=== PATIENT | female | born 1945 | race Caucasian/White ===

== ENCOUNTER 2019-02-24 09:44 | Outpatient (RCR) | payer OTHER, MEDICARE, MEDICAID, SELFPAY | END 2019-03-14 23:59 | disposition home or self-care (01) | LOC: SPT 09:44 | PROVIDERS: Family Provider Family Medicine; PCP Family Medicine; Referring Provider Orthopaedic Surgery; Visit Provider Family Medicine | DX: Z47.89 Encounter for other orthopedic aftercare (principal); M54.9 Dorsalgia, unspecified | CPT/HCPCS: 97110; 97161 ==

== ENCOUNTER 2019-03-15 06:00 | Outpatient (RCR) | payer OTHER, MEDICARE, MEDICAID, SELFPAY | END 2019-04-12 23:59 | disposition home or self-care (01) | LOC: SPT 06:00 | PROVIDERS: Family Provider Family Medicine; PCP Family Medicine; Referring Provider Orthopaedic Surgery; Visit Provider Family Medicine | DX: Z47.89 Encounter for other orthopedic aftercare (principal); M25.512 Pain in left shoulder | CPT/HCPCS: 97110 ==

== ENCOUNTER 2019-04-08 14:54 | Outpatient (CLI) | payer OTHER, MEDICARE, MEDICAID, SELFPAY ==
--- NOTE | 2019-04-08 15:15 | MR_ITS ---
WS: [id number] MRI CERVICAL SPINE NONCONTRAST TECHNIQUE: Sagittal T1, T2 and STIR imaging. Axial T2, gradient, and fiesta imaging. CLINICAL INFORMATION: neck pain COMPARISON: MRI FINDINGS: Straightening of the normal cervical lordosis. No high-grade central canal narrowing. Tiny central pr otrusion C4-C5 C5-C6 and C6-C7. C2-C3: Normal. C3-C4: Tiny central disc osteophyte protrusion. Mild facet arthropathy. Mild left and no significant right foraminal narrowing. C4-C5: Left pericentral disc osteophyte protrusion with slight contact and indentation of the cervica l cord. Mild central canal stenosis. Mild bilateral foraminal narrowing. Moderate facet arthropathy. C5-C6: Disc osteophyte complex with endplate ridging. Mild left and no significant right foraminal na rrowing. Mild/moderate facet arthropathy. C6-C7: Disc osteophyte complex with mild central canal stenosis. Mild left and no significant right f oraminal narrowing. C7-T1: Mild bilateral bony foraminal narrowing. Spinal canal is patent. T1-T2: Normal. Overall degenerative changes are similar in appearance 2011 with slight progression. MR/MR cervical spin wo con* [id number] IMPRESSION: 1. Straightening of the normal cervical lordosis. No high-grade central canal narrowing. 2. Shallow central disc osteophyte protrusions more prominent at C4-C5 C5-C6 a nd C6-C7 3. Left pericentral disc osteophyte protrusion C4-C5 with slight contact and i ndentation left ventral cervical cord. Mild central canal stenosis. This is sim ilar to 2012. 4. Disc osteophyte complex C5-C6 and C6-C7 with mild left foraminal narrowing at these levels. 5. Mild left C3-C4 bony foraminal narrowing with moderate left facet arthropat hy.
== END 2019-04-08 14:55 | disposition home or self-care (01) ==
LOC: RADSHAW 14:59
PROVIDERS: Family Provider Family Medicine; PCP Family Medicine; Visit Provider Orthopaedic Surgery
DX: M54.12 Radiculopathy, cervical region (principal); M50.221 Other cervical disc displacement at C4-C5 level; M25.78 Osteophyte, vertebrae; M48.02 Spinal stenosis, cervical region
CPT/HCPCS: 72141

== ENCOUNTER → 2019-05-16 10:19 | Outpatient (BNVA) | payer OTHER, MEDICARE, MEDICAID, SELFPAY | PROVIDERS: Family Provider Family Medicine; PCP Family Medicine; Referring Provider Licensed Practical Nurse; Visit Provider Anesthesiology Pain Medicine | DX: M54.2 Cervicalgia (principal); M54.9 Dorsalgia, unspecified; Z79.891 Long term (current) use of opiate analgesic | CPT/HCPCS: 99204 ==

== ENCOUNTER 2019-05-22 09:36 | Outpatient (CLI) | payer OTHER, MEDICARE, MEDICAID, SELFPAY ==
--- NOTE | 2019-05-22 10:00 | XR_ITS ---
WS: [id number] LATERAL CERVICAL SPINE: 3 view. Lateral radiographs are performed in upright neutral, flexion and extension to the patient's toleranc e. HISTORY: Neck pain COMPARISON: None available. Normal cervical alignment. Mild disc space narrowing and desiccation at C5-6 and C6-7 with small oste ophytes. With flexion and extension no instability. Craniocervical junction is negative. No soft tiss ue abnormalities. XR/XR cervical spine fl/ex [id number] IMPRESSION: Normal cervical alignment with no instability. Mild spondylosis at C5-6 and C6-7.
== END 2019-05-22 09:37 | disposition home or self-care (01) ==
PROVIDERS: Family Provider Family Medicine; PCP Family Medicine; Visit Provider Licensed Practical Nurse
DX: M54.2 Cervicalgia (principal); M47.812 Spondylosis without myelopathy or radiculopathy, cervical region; G56.02 Carpal tunnel syndrome, left upper limb; Z87.891 Personal history of nicotine dependence
CPT/HCPCS: 72040; 95886; 95908

== ENCOUNTER → 2019-07-08 13:07 | Outpatient (BNVA) | payer MEDICARE, MEDICAID, SELFPAY | PROVIDERS: Family Provider Family Medicine; PCP Family Medicine; Visit Provider Anesthesiology Pain Medicine | DX: M50.020 Cervical disc disorder with myelopathy, mid-cervical region, unspecified level (principal) | CPT/HCPCS: 62321; J1100; J2001 ==

== ENCOUNTER → 2019-07-30 12:55 | Outpatient (BNVA) | payer OTHER, MEDICARE, MEDICAID, SELFPAY | PROVIDERS: Family Provider Family Medicine; PCP Family Medicine; Visit Provider Anesthesiology Pain Medicine | DX: M50.10 Cervical disc disorder with radiculopathy, unspecified cervical region (principal); M54.9 Dorsalgia, unspecified | CPT/HCPCS: 99213 ==

== ENCOUNTER → 2019-10-30 10:51 | Outpatient (BNVA) | payer MEDICARE, MEDICAID, SELFPAY | PROVIDERS: Family Provider Family Medicine; PCP Family Medicine; Visit Provider Anesthesiology Pain Medicine | DX: M51.17 Intervertebral disc disorders with radiculopathy, lumbosacral region (principal); M51.9 Unspecified thoracic, thoracolumbar and lumbosacral intervertebral disc disorder; M54.9 Dorsalgia, unspecified; M50.10 Cervical disc disorder with radiculopathy, unspecified cervical region; Z79.891 Long term (current) use of opiate analgesic | CPT/HCPCS: 99214 ==

== ENCOUNTER 2019-12-01 07:08 | Outpatient (CLI) | payer MEDICARE, MEDICAID, SELFPAY ==
--- NOTE | 2019-12-01 07:15 | MR_ITS ---
WS: [id number] MRI LUMBAR SPINE NONCONTRAST TECHNIQUE: Sagittal T1, T2 and STIR imaging. Axial T1 and T2 imaging. CLINICAL INFORMATION: M54.16 Radiculopathy, lumbar region COMPARISON: MRI August 07, 2018 FINDINGS: Mild lumbar curve. No acute compression. Slight anterolisthesis L4 on L5. No acute compression fractu res. L1-L2: Mild annular bulging. Narrowing of the subarticular recess bilaterally. Encroachment on darryn sing L2 nerve roots. Mild facet arthropathy. Mild right greater than left foraminal narrowing. L2-L3: Mild annular bulging. Slight effacement of ventral thecal sac. Mild right and no significant l eft foraminal narrowing. Moderate facet arthropathy. L3-L4: Mild annular bulging with narrowing of the left subarticular recess. Mild left and no signific ant right foraminal narrowing. Moderate facet arthropathy. L4-L5: Slight anterolisthesis L4 on L5. Narrowing of the subarticular recess bilaterally. Encroachmen t traversing L5 nerve roots. Mild left and no significant right foraminal narrowing. Moderate facet a rthropathy. L5-S1: Broad-based central disc osteophyte complex contacts the far exiting right L5 nerve root later ally. Mild right foraminal narrowing. Left foramen is patent. Mild facet arthropathy. Tiny central pr otrusion slightly contacts the traversing right S1 nerve root. Visualized pelvic bony structures: Normal. Paravertebral soft tissues: Normal. MR/MR lumbar spine wo con* [id number] IMPRESSION: 1. Mild lumbar curve. No acute compression. No high-grade central canal stenos is. 2. Slight anterolisthesis L4 on L5 is unchanged. Narrowing of the right greate r than left L4-5 subarticular recess with slight encroachment traversing L5 ner ve roots. Mild to moderate left L4-5 foraminal narrowing. 3. Slight annular bulging L3-4 with narrowing of the left subarticular recess and encroachment traversing left L4 nerve root. Mild left foraminal narrowing a t this level. 4. Right eccentric disc osteophyte complex L5-S1 encroaches on the far exiting right L5 nerve root laterally. Tiny central protrusion at this level. 5. Annular bulging L1-2 with narrowing of the subarticular recess and contact of the traversing L2 nerve roots bilaterally. 6. No significant changes since
--- NOTE | 2019-12-01 08:00 | MR_ITS ---
WS: [id number] MRI THORACIC SPINE WITHOUT CONTRAST TECHNIQUE: Sagittal T1, T2 and STIR imaging. Axial T2 imaging. Noncontrast imaging obtained. CLINICAL INFORMATION: M51.9 Unspecified thoracic, thoracolumbar and lumbosacral... COMPARISON: None. FINDINGS: Mild thoracic kyphosis. Mild chronic anterior wedging in the mid thoracic spine with endplate Schmorl 's nodes. Cord signal is normal. Small disc protrusions in the mid thoracic spine more prominent at T 6-7 and T7-T8, T6-7: Tiny shallow central disc protrusion. Slight contact of the thoracic cord. Spinal canal and for amen are patent. Mild facet arthropathy. T7-T8: Small left pericentral protrusion with slight indentation on the thoracic cord. Spinal canal i s patent. Mild left foraminal narrowing. Mild facet arthropathy. Moderate facet arthropathy in the lower thoracic spine. Normal visualized thoracic aorta. MR/MR thoracic spin wo con* [id number] IMPRESSION: 1. Mild thoracic kyphosis. No acute compression. No high-grade central canal s tenosis. 2. Small central disc protrusions at T6-T7 and T7-T8 described above with sli ght contact of the thoracic cord. 3. Cord signal is normal. 4. Mild/moderate facet arthropathy lower thoracic spine. 5. Mild chronic anterior wedging with endplate Schmorl's nodes in the mid thor acic spine more prominent at T6-T10.
== END 2019-12-01 07:09 | disposition home or self-care (01) ==
LOC: RADSHAW 07:11
PROVIDERS: PCP Family Medicine; Visit Provider Anesthesiology Pain Medicine
DX: M51.9 Unspecified thoracic, thoracolumbar and lumbosacral intervertebral disc disorder (principal); M54.16 Radiculopathy, lumbar region; M25.78 Osteophyte, vertebrae; M51.26 Other intervertebral disc displacement, lumbar region; M48.061 Spinal stenosis, lumbar region without neurogenic claudication; M40.204 Unspecified kyphosis, thoracic region; M51.24 Other intervertebral disc displacement, thoracic region; M47.814 Spondylosis without myelopathy or radiculopathy, thoracic region; M48.54XA Collapsed vertebra, not elsewhere classified, thoracic region, initial encounter for fracture; X58.XXXA Exposure to other specified factors, initial encounter; M51.44 Schmorl's nodes, thoracic region
CPT/HCPCS: 72146; 72148

== ENCOUNTER → 2019-12-25 08:57 | Outpatient (BNVA) | payer MEDICARE, MEDICAID, SELFPAY | PROVIDERS: PCP Family Medicine; Visit Provider Anesthesiology Pain Medicine | DX: M54.42 Lumbago with sciatica, left side (principal); M54.41 Lumbago with sciatica, right side; M54.9 Dorsalgia, unspecified; M54.2 Cervicalgia; Z79.891 Long term (current) use of opiate analgesic | CPT/HCPCS: 99213; 99214 ==

== ENCOUNTER → 2019-12-31 14:30 | Outpatient (BNVA) | payer MEDICARE, MEDICAID, SELFPAY | PROVIDERS: PCP Family Medicine; Visit Provider Anesthesiology Pain Medicine | DX: M54.16 Radiculopathy, lumbar region (principal); M54.9 Dorsalgia, unspecified; Z79.891 Long term (current) use of opiate analgesic | CPT/HCPCS: 64483; 64484; J1100; J3490 ==

== ENCOUNTER → 2020-01-21 10:20 | Outpatient (BNVA) | payer MEDICARE, MEDICAID, SELFPAY | PROVIDERS: PCP Family Medicine; Visit Provider Anesthesiology Pain Medicine | DX: M54.42 Lumbago with sciatica, left side (principal); M54.41 Lumbago with sciatica, right side; M54.9 Dorsalgia, unspecified; M54.2 Cervicalgia; Z79.891 Long term (current) use of opiate analgesic | CPT/HCPCS: 99212 ==

== ENCOUNTER → 2020-07-29 09:50 | Outpatient (BNVA) | payer MEDICARE, MEDICAID, SELFPAY | PROVIDERS: PCP Family Medicine; Visit Provider Anesthesiology Pain Medicine | DX: M54.2 Cervicalgia (principal); M54.9 Dorsalgia, unspecified; R51.9 Headache, unspecified; M25.512 Pain in left shoulder; Z87.891 Personal history of nicotine dependence; Z79.891 Long term (current) use of opiate analgesic | CPT/HCPCS: 99214 ==

== ENCOUNTER → 2020-10-22 09:34 | Outpatient (BNVA) | payer MEDICARE, MEDICAID, SELFPAY | PROVIDERS: PCP Family Medicine; Visit Provider Anesthesiology Pain Medicine | DX: M54.2 Cervicalgia (principal); M25.512 Pain in left shoulder; M79.602 Pain in left arm; M19.09 Primary osteoarthritis, other specified site; M54.5 Low back pain; M25.78 Osteophyte, vertebrae; Z79.891 Long term (current) use of opiate analgesic | CPT/HCPCS: 99214 ==

== ENCOUNTER → 2020-11-02 14:03 | Outpatient (BNVA) | payer MEDICARE, MEDICAID, SELFPAY | PROVIDERS: PCP Family Medicine; Visit Provider Anesthesiology Pain Medicine | DX: M47.812 Spondylosis without myelopathy or radiculopathy, cervical region (principal); Z79.891 Long term (current) use of opiate analgesic | CPT/HCPCS: 64490; 64491; 64492; J3490 ==

== ENCOUNTER → 2020-11-16 09:48 | Outpatient (BNVA) | payer MEDICARE, MEDICAID, SELFPAY | PROVIDERS: PCP Family Medicine; Visit Provider Anesthesiology Pain Medicine | DX: M54.2 Cervicalgia (principal); M54.50 Low back pain, unspecified; Z79.891 Long term (current) use of opiate analgesic | CPT/HCPCS: 99214 ==

== ENCOUNTER → 2020-11-23 14:34 | Outpatient (BNVA) | payer MEDICARE, MEDICAID, SELFPAY | PROVIDERS: PCP Family Medicine; Visit Provider Anesthesiology Pain Medicine | DX: M47.812 Spondylosis without myelopathy or radiculopathy, cervical region (principal); Z79.891 Long term (current) use of opiate analgesic | CPT/HCPCS: 64633; 64634; J1030 ==

== ENCOUNTER → 2020-12-08 14:41 | Outpatient (BNVA) | payer MEDICARE, MEDICAID, SELFPAY | PROVIDERS: PCP Family Medicine; Visit Provider Anesthesiology Pain Medicine | DX: M47.812 Spondylosis without myelopathy or radiculopathy, cervical region (principal); Z79.891 Long term (current) use of opiate analgesic | CPT/HCPCS: 64633; 64634; J3490 ==

== ENCOUNTER → 2020-12-22 09:54 | Outpatient (BNVA) | payer MEDICARE, MEDICAID, SELFPAY | PROVIDERS: PCP Family Medicine; Visit Provider Anesthesiology Pain Medicine | DX: M48.061 Spinal stenosis, lumbar region without neurogenic claudication (principal); M47.812 Spondylosis without myelopathy or radiculopathy, cervical region; M25.78 Osteophyte, vertebrae; M25.512 Pain in left shoulder; M79.602 Pain in left arm | CPT/HCPCS: 99213 ==

== ENCOUNTER 2021-05-19 07:14 | Day surgery (SDC) | payer MEDICARE, MEDICAID, SELFPAY ==
[2021-05-18 13:19] VITALS: BMI 45.5
--- NOTE | 2021-05-19 07:36 | W.PM.OPSFHP ---
Same Day Surgery H&P Indication for Procedure/HPI DATE OF PROCEDURE: May 19, 2021 CHIEF COMPLAINT/INDICATIONFOR SURGICAL PROCEDURE: Right temporal headache PREOP DIAGNOSIS: Right temporal artery biopsy PLANNED PROCEDURE: Operation Date: 05/19/21 08:40 Proposed Procedures p Temporal Artery Biopsy right 92073/r51.9(Right) - Amos Abdi MD Medications/Allergies* Home Medications Medication Instructions Recorded Confirmed Type hydrocodone 5 mg-acetaminophen 325 1 tab PO BID PRN 02/18/19 05/18/21 History mg tablet ([place]) levothyroxine 125 mcg capsule 125 mcg PO DAILY 02/18/19 05/18/21 History metoprolol succinate 50 mg 50 mg PO BEDTIME 02/18/19 05/18/21 History tablet,extended release 24 hr pantoprazole 40 mg granules 40 mg PO DAILY 02/18/19 05/18/21 History delayed-release for susp in packet (Protonix) tizanidine 2 mg capsule 2 mg PO BID PRN 02/18/19 05/18/21 History cholecalciferol (vitamin D3) 25 25 mcg PO DAILY 05/15/19 05/18/21 History mcg (1,000 unit) capsule coenzyme Q10 75 mg capsule (Ultra 75 mg PO DAILY 05/15/19 05/18/21 History CoQ10) omega-3 fatty acids 500 mg capsule 500 mg PO DAILY 05/15/19 05/18/21 History Allergies/Adverse Reactions Allergy/AdvReac Type Severity Reaction Status Date / Time Iodinated Contrast Media Allergy Unknown anaphylaxis Verified 05/18/21 13:06 adhesive Allergy red skin Verified 05/18/21 13:06 oxaprozin [From Daypro] Allergy itching, Verified 05/18/21 13:06 rash shellfish derived Allergy swelling Verified 05/18/21 13:06 of throat and face Pertinent History/Comorbid Conditions* Medical History (Updated 05/10/21 @ 14:37 by Amos Abdi MD) Cervical disc disorder with myelopathy of mid-cervical region Cervical disc disorder with radiculopathy Stenosis of cervical spine with myelopathy Surgical History (Updated 05/10/21 @ 14:37 by Amos Abdi MD) History of appendectomy History of carpal tunnel release History of colonoscopy History of hysterectomy History of laparoscopic cholecystectomy History of removal of laparoscopic gastric banding device History of shoulder surgery Hx of cataract surgery Hx of laparoscopic adjustable gastric banding Family History (Updated 05/15/19 @ 12:28 by Fani Calhoun APRN) CAD (coronary artery disease) Mother Social History Smoking and tobacco status: former smoker Second hand smoke exposure: No Alcohol intake: never Household members: none Marital status: / Current occupational status: retired and disabled History of recent travel: No Pertinent Exam Findings alert, oriented x 3 and regular rate & rhythm Recommendations Surgery/Procedure today Coding Level of Care Code Acute Overhead Crane Inspector for Kody Arshad
--- NOTE | 2021-05-19 07:41 | ECG_ITS ---
[facility] Test Date: 2021-05-19 Pat Name: Jenn Diego Department: Room: Gender: Female Grade Checker: : 1945 Requested By: Gloria Knapp Order Number: [id number] Davidson MD: Marlon Gómez M.D. Measurements Intervals [place] Rate: 58 P: 1 CT: 195 QRS: -9 QRSD: 89 T: 0 QT: 406 QTc: 401 Interpretive Statements SINUS BRADYCARDIA LOW QRS VOLTAGE IN PRECORDIAL LEADS [QRS DEFLECTION < 1.0 mV IN CHEST LEADS] Possible INFERIOR MYOCARDIAL INFARCTION , PROBABLY OLD [40+ ms Q WAVE AND/OR ST/T ABNORMALITY IN II/aVF] Compared to ECG 11/19/2018 09:54:08 Sinus arrhythmia no longer present Myocardial infarct finding still present Electronically Signed On 05-19-2021 16:15:56 CDT by Marlon Gómez M.D. [id number]
[2021-05-19 07:46] VITALS: BP 185/102; PULSE 98; RESP 12; TEMP 36.6; O2SAT 98
--- NOTE | 2021-05-19 08:06 | P.ANESASSM_ITS ---
Pre-Anesthetic Assessment Height/Weight: Height 1.52 m Weight 105.687 kg Temp Pulse Resp BP Pulse Ox 97.8 F 98 12 185/102 98 05/19/21 07:46 05/19/21 07:46 05/19/21 07:46 05/19/21 07:46 05/19/21 07:46 Preop Diagnosis: Right temporal headache Operation Date: 05/19/21 08:40 Proposed Procedures p Temporal Artery Biopsy right 59172/r51.9(Right) - Amos Abdi MD Familial anesthetic complications: None Was Beta Osmin taken within 24 hours: Yes Was Clonidine taken within 24 hours: N/A Social No alcohol and No tobacco Exam alert, oriented x 3, clear to auscultation bilaterally and regular rate & rhythm Airway Submandibular: within normal limits Cervical ROM: Other (Limited extension ) Mallampati: Class II Dentition: partials Pulmonary None reported CV/HEM Atrial Fibrillation and Hypertension Hx of afib no resolved s/p cardioversion not on anticoagulation Hx of HTN GI Gastroesophageal Reflux Disease and None reported Metabolic Morbid Obesity and Thyroid Disease (Hypothyroid ) Musc/skel 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 Neuropsych Neuropathy (carpal tunnel ) Cervical stenosis Cervical rediculopathy Anesthetic Plan ASA status: 3 (75 year old morbidly obese female with hx of GERD, afib, HTN. ) Anesthesia: Anesthesia Evaluation, General and MAC Other: I discussed with the patient risks, goals, and benefits of MAC and general anesthesia. We discussed spectrum of MAC anesthesia including conversion to general as well as possibility of recall of intraoperative stimuli including discomfort/pain. Patient agrees to proceed with MAC. Risk of > 500 ml blood loss (7ml/kg in children): No Medications/Allergies Home Medications Medication Instructions Recorded Confirmed Last Taken Type hydrocodone 5 mg-acetaminophen 325 1 tab PO BID PRN 02/18/19 05/18/21 Unknown History mg tablet ([place]) levothyroxine 125 mcg capsule 125 mcg PO DAILY 02/18/19 05/19/21 05/19/21 History metoprolol succinate 50 mg 50 mg PO BEDTIME 02/18/19 05/19/21 05/18/21 History tablet,extended release 24 hr pantoprazole 40 mg granules 40 mg PO DAILY 02/18/19 05/19/21 05/18/21 History delayed-release for susp in packet (Protonix) tizanidine 2 mg capsule 2 mg PO BID PRN 02/18/19 05/19/21 05/18/21 History cholecalciferol (vitamin D3) 25 25 mcg PO DAILY 05/15/19 05/19/21 05/18/21 History mcg (1,000 unit) capsule coenzyme Q10 75 mg capsule (Ultra 75 mg PO DAILY 05/15/19 05/19/21 05/18/21 History CoQ10) omega-3 fatty acids 500 mg capsule 500 mg PO DAILY 05/15/19 05/19/21 05/18/21 History back brace #1 ea 12/08/20 05/10/21 Unknown Rx Allergies Allergy/AdvReac Type Severity Reaction Status Date / Time Iodinated Contrast Media Allergy Unknown anaphylaxis Verified 05/18/21 13:06 adhesive Allergy red skin Verified 05/18/21 13:06 oxaprozin [From Daypro] Allergy itching, Verified 05/18/21 13:06 rash shellfish derived Allergy swelling Verified 05/18/21 13:06 of throat and face [facility] Anesthesia Medical History Cervical disc disorder with myelopathy of mid-cervical region Cervical disc disorder with radiculopathy Stenosis of cervical spine with myelopathy Surgical History History of appendectomy History of carpal tunnel release History of colonoscopy History of hysterectomy History of laparoscopic cholecystectomy History of removal of laparoscopic gastric banding device History of shoulder surgery Hx of cataract surgery Hx of laparoscopic adjustable gastric banding Family History Mother CAD (coronary artery disease) Social History Smoking and tobacco status: former smoker Second hand smoke exposure: No Alcohol intake: never Household members: none Marital status: / Current occupational status: retired and disabled History of recent travel: No Data Anesthesia Cardiac Studies: No Data to Display
[2021-05-19] MEDS: sodium chloride 0.9% 1,000 ML 30 ML IV (08:10)
[2021-05-19] MEDS: lidocaine 2% INJ 20 mL INJECTION (09:39)
[2021-05-19 10:01] VITALS: BP 135/69; PULSE 56; RESP 16; TEMP 36.4; O2SAT 99
[2021-05-19 10:08] VITALS: BP 134/65; PULSE 57; RESP 14; O2SAT 100
--- NOTE | 2021-05-19 10:08 | PM.OP ---
Operative Report Date of procedure: May 19, 2021 Pre-op diagnosis: Right temporal headache Post-op diagnosis: same Procedure done: Right superficial temporal artery biopsy Specimens removed/disposition: Right superficial temporal artery Surgeon: Amos Abdi Anesthesia: MAC Condition: stable Disposition: PACU Procedure: The patient was taken to the operating room, placed under MAC and the right temporal artery was marked using a Doppler and the hair overlying the markings were clipped. 5 mL of 1% lidocaine with 0.5% Marcaine was infiltrated around this area. Using a 15 blade the skin and subcutaneous tissue was divided until the temporoparietal fascia was identified. The temporoparietal fascia was opened using Iris scissors and about a 3 cm segment of temporal artery was skeletonized. Small vascular clips were applied proximally and distally and the artery was divided and sent to pathology. Hemostasis was ensured, subcutis tissue approximated using running 3-0 Vicryl suture and skin was closed using running subcuticular 4-0 Monocryl suture and Dermabond. The patient was transferred to recovery room in stable condition.
[2021-05-19 10:10] VITALS: BP 131/75; PULSE 58; RESP 18; TEMP 36.6; O2SAT 96
[2021-05-19 10:25] VITALS: BP 131/82; PULSE 62; RESP 16; TEMP 36.6; O2SAT 97
[2021-05-19 11:11] VITALS: BP 110/65; PULSE 63; RESP 16; TEMP 36.7; O2SAT 97
--- NOTE | 2021-05-19 13:50 | ANE.PACU2 ---
Inpatient post-anesthesia follow up: Airway intact: Yes Vital signs: Temperature 98.0 F Pulse Rate 63 Respiratory Rate 16 Blood Pressure 110/65 Pulse Oximetry 97 Oxygen Delivery Me thod Room Air Oxygen Flow Rate Fraction of Inspir ed Oxygen Hydration adequate: Yes Nausea and vomiting: No Pain level: 1 Mental status: Baseline
== END 2021-05-19 11:15 | disposition home or self-care (01) ==
PROVIDERS: PCP Family Medicine; Visit Provider Surgery
PROC: (CPT 37609; principal; 2021-05-19 08:40)
DX: R51.9 Headache, unspecified (principal); M31.6 Other giant cell arteritis; I48.91 Unspecified atrial fibrillation; I10 Essential (primary) hypertension; K21.9 Gastro-esophageal reflux disease without esophagitis; E66.01 Morbid (severe) obesity due to excess calories; Z68.42 Body mass index [BMI] 45.0-49.9, adult; Z87.891 Personal history of nicotine dependence
CPT/HCPCS: 37609; 88305; 93005; J0690; J2704; J3010; J3490; J7030

== ENCOUNTER → 2021-05-31 08:04 | Outpatient (BNVA) | payer MEDICARE, MEDICAID, SELFPAY | PROVIDERS: PCP Family Medicine; Visit Provider Surgery | DX: Z98.890 Other specified postprocedural states (principal) | CPT/HCPCS: 99999 ==

== ENCOUNTER 2021-09-09 09:15 | Outpatient (CLI) | payer MEDICARE, MEDICAID, SELFPAY ==
--- NOTE | 2021-09-09 | ECG_ITS ---
[facility] Test Date: 2021-09-09 Pat Name: Jenn Diego Department: Room: Gender: Female Transmission System Operator: : 1945 Requested By: Nafisa Foster Order Number: [id number] Davidson MD: Philip Dotson M.D. Interpretive Statements NAME OF STUDY: LEXISCAN SESTAMIBI STRESS TEST INDICATION: Chest Pain, PROCEDURE: At the baseline, the EKG revealed normal sinus rhythm poor R wave progression. Possible old septal ID. The baseline blood pressure was 134/66 mm Hg with a heart rate of 62 beats/min. Lexiscan was infused over a period of 20 seconds. A total of 0.4 milligrams of Lexiscan was infused. The stress phase was continued for a total of 5 minutes. Heart rate at the end of the stress phase was 73 with a blood pressure 154/74. The EKG at the peak infusion revealed no significant changes. Sestamibi was injected 20 seconds after the Lexiscan infusion. Blood pressure at the end of the recovery phase was 152/70 with a heart rate of 71 per minute. CONCLUSION: 1. No significant EKG changes with the LexiScan infusion 2. No LexiScan induced chest pain or cardiac arrhythmia 3. Normal blood pressure and heart rate response 4. Sestamibi/sestamibi perfusion scan pending; see separate report. Electronically Signed On 09-09-2021 18:40:23 CDT by Philip Dotson M.D. [id number]
[2021-09-09 09:55] VITALS: BMI 45.1
--- NOTE | 2021-09-09 09:57 | NMCV_ITS ---
NM reji perf SPECT r/s* [id number] Jenn Diego Age: 76 Gender: F : 1945 Exam Date: 09/09/2021 11:18 Ordering Phys: Nafisa Porter MD Technologist: ZOHRA Daniels Exam Location: [facility] Indications: CHEST PAIN STRESS TEST Please [facility] IMAGE PROTOCOL Rest/Stress 1 Lexiscan Day Radiopharmaceutical Dose (mCi) Administration Site Administered by Rest: Tc-99m 10.8 IV ZOHRA Brar Sestamibi Stress:Tc-99m 32.8 IV ZOHRA Brar Sestamibi Rest: 09-Sep-2021 60 Discovery 630 Stress: 09-Sep-2021 30 Discovery 630 0.4mg Lexiscan. Images obtained in supine and prone position. SPECT RESULTS Technical Quality: Excellent Raw Data Analysis: Normal Image Corrections: No attenuation or motion correction applied Summed Stress Score: 2 Summed Rest Score: 1 Summed Difference Score: 2 PERFUSION FINDINGS A small area of decreased tracer uptake was noted in the apical inferior and LV apex. Subtle area of reversibility was noted in these regions. FUNCTIONAL RESULTS (calculated via Gated SPECT) Stress Image LV EF (%): 74 Stress EDV (mL):85 TID: 1.11 Stress ESV (mL):22 FUNCTIONAL FINDINGS: Segmental wall motion analysis revealing no gross wall motion abnormalities IMPRESSIONS 1. Myocardial perfusion imaging revealing a small area of decreased tracer uptake in the apical inferior and LV apex with a subtle relative reversibility suggesting myocardial scarring with some very small areas of janice-infarction ischemia. 2. Normal ejection fraction 74%. 3. LV wall motion analysis revealing no gross wall motion normalities. 4. Normal LV volume. No similar previous studies are available for comparison Dr Philip Dotson MD FAC (Electronically Signed) Final Date: 09 September 2021 15:30 S
[2021-09-09] MEDS: regadenoson 0.4 Mg/5 ml Syringe IVP (12:04)
[2021-09-09 12:18] VITALS: BP 152/70; PULSE 73
== END 2021-09-09 09:16 | disposition home or self-care (01) ==
LOC: CDL 09:17
PROVIDERS: PCP Family Medicine; Visit Provider Family Medicine
DX: R07.9 Chest pain, unspecified (principal)
CPT/HCPCS: 78452; 93017; A9500; J2785

== ENCOUNTER 2021-09-18 20:46 | Inpatient (IN) | payer MEDICARE, MEDICAID, SELFPAY ==
--- NOTE | 2021-09-18 20:48 | XRR_ITS ---
PROCEDURE INFORMATION: Exam: XR Chest Exam date and time: 09/18/2021 9:12 PM Age: 76 years old Clinical indication: Pain; Angina pectoris; Additional info: Cp TECHNIQUE: Imaging protocol: Radiologic exam of the chest. Views: 1 view. Total images: 1025 COMPARISON: CR Chest 1 [place] [id number] 07/23/2018 9:29 AM FINDINGS: Lungs: Unremarkable. No consolidation. Pleural spaces: Unremarkable. No pleural effusion. No pneumothorax. Heart/Mediastinum: Unremarkable. No cardiomegaly. Bones/joints: Unremarkable. XR/XR chest 1V portable [id number] IMPRESSION: No acute findings.
--- NOTE | 2021-09-18 20:48 | ECG_ITS ---
[facility] Test Date: 2021-09-18 Pat Name: Jenn Diego Department: Room: Gender: Female Regional Liaison: : 1945 Requested By: Sudhakar Tapia Order Number: [id number] Davidson MD: Philip Dotson M.D. Measurements Intervals [place] Rate: 76 P: [place]: QRS: 43 QRSD: 84 T: 55 QT: 362 QTc: 407 Interpretive Statements SUPRAVENTRICULAR RHYTHM LOW QRS VOLTAGE IN PRECORDIAL LEADS [QRS DEFLECTION < 1.0 mV IN CHEST LEADS] ABNORMAL RHYTHM ECG Compared to ECG 05/19/2021 07:49:07 Supraventricular rhythm now present Sinus bradycardia no longer present Myocardial infarct finding no longer present Electronically Signed On 09-20-2021 0:28:07 CDT by Philip Dotson M.D. [id number]
[2021-09-18 20:55] VITALS: BP 178/78; PULSE 72; RESP 20; O2SAT 97; BMI 45.3
--- NOTE | 2021-09-18 20:56 | W.ED.CHESTPA ---
HPI - Chest Pain General: Chief Complaint: Chest Pain Stated Complaint: CP Time Seen by Provider: 09/18/21 20:48 Source: patient and EMS Mode of arrival: EMS Limitations: no limitations History of Present Illness: 76-year-old female who states she started with chest pain this evening 2 hours ago. States it was a pressure type pain in her chest that went to her jaw and down her arm. States pain is worse with 6 out of 10 she given nitro and aspirin in EMS states the pain is resolved currently denies any diaphoresis denies any shortness of breath. Patient did have a stress test on September 09 that was abnormal. Associated symptoms: Deny abdominal pain, dyspnea, fever(s), nausea or vomiting Review of Systems Const: Denies: fever(s), chills, body aches or change in appetite Eyes: Denies: blurry vision or eye discomfort ENMT: Denies: throat pain or dental pain Card: Reports: chest pain Resp: Denies: dyspnea GI: Denies: abdominal pain, nausea, vomiting or diarrhea : Denies: dysuria Musc: Denies: neck pain or back pain Skin/Breast: Denies: rash Neuro: Denies: headache(s) Psych: Denies: depression Kevin/Lymph: Denies: easy bruising All/Imm: Denies: urticaria PFSH ED PFSH: Medical History Cervical disc disorder with myelopathy of mid-cervical region Cervical disc disorder with radiculopathy Stenosis of cervical spine with myelopathy Surgical History History of appendectomy History of carpal tunnel release History of colonoscopy History of hysterectomy History of laparoscopic cholecystectomy History of removal of laparoscopic gastric banding device History of shoulder surgery History of temporal artery biopsy (05/19/21) Hx of cataract surgery Hx of laparoscopic adjustable gastric banding Family History Mother CAD (coronary artery disease) Social History Smoking and tobacco status: former smoker Second hand smoke exposure: No Alcohol intake: never Household members: none Marital status: / Current occupational status: retired and disabled History of recent travel: No Physical Exam Const: COMMON NORMALS: no acute distress, patient oriented x3 and healthy appearing HENMT: COMMON NORMALS: normocephalic and atraumatic HEAD & SCALP: normocephalic and atraumatic Eye: COMMON NORMALS: Equal, round and reactive pupils present and EOMs intact bilaterally PUPIL: Yes Equal, round and reactive pupils present Neck/C-Spine: COMMON NORMALS: full ROM and supple Chest: COMMONS NORMALS: normal inspection of the chest and normal palpation of entire chest wall Resp: COMMON NORMALS: normal respiratory effort, No retractions, No use of accessory muscles and clear to auscultation bilaterally AUSCULTATION: clear to auscultation bilaterally Cardio: COMMON NORMALS: regular rate, regular rhythm and No murmurs present (Cardio) RATE: regular rate RHYTHM: regular rhythm GI: COMMON NORMALS: Normal to inspection, nondistended, normoactive bowel sounds present, Soft to palpation, non-tender and no masses PALPATION: Yes Soft to palpation Extremity: COMMON NORMALS: normal to inspection and full ROM Neuro: COMMON NORMALS: patient oriented x3, moves all extremities and no focal motor deficits Psych: COMMON NORMALS: mental status grossly normal, Normal thought process present and cooperative THOUGHT PROCESS: Normal thought process present Skin: COMMON NORMALS: no rashes or lesions noted and no wounds GENERAL SKIN EXAM: no rashes or lesions noted Course Vital Signs: Vital signs: Vital Signs Pulse Rate 72 09/18/21 20:55 Respiratory Rate 20 H 09/18/21 20:55 Blood Pressure 178/78 09/18/21 20:55 Pulse Oximetry 97 09/18/21 20:55 Oxygen Delivery Me thod 09/18/21 20:55 MDM - Chest Pain Medical Decision Making Patient presents for chest pain her initial troponin is normal here but she did have a stress test on September 09 that showed some ischemia she is having a convincing story as well we will admit to trend troponin she has been stable and pain-free here. Lab Data : 09/18/21 21:04 09/18/21 21:04 Laboratory Results WBC 8.9 10^3/uL (4.0-10.0) 09/18/21 21:04 RBC 5.03 10^6/uL (4.1-5.3) 09/18/21 21:04 Hgb 15.3 g/dL (11.5-15.3) 09/18/21 21:04 Hct 46.4 % (37.0-47.0) 09/18/21 21:04 MCV 92.2 fl (81-99) 09/18/21 21:04 MCH 30.4 pg (28.0-34.0) 09/18/21 21:04 MCHC 33.0 g/dL (30.0-36.0) 09/18/21 21:04 RDW 12.5 % (12.1-15.1) 09/18/21 21:04 Plt Count 256 10^3/cmm (130-400) 09/18/21 21:04 MPV 9.8 fL (7.4-10.4) 09/18/21 21:04 Neut % (Auto) 48.2 % 09/18/21 21:04 Lymph % (Auto) 38.4 % 09/18/21 21: [place] % (Auto) 8.5 % 09/18/21 21:04 Eos % (Auto) 4.0 % 09/18/21 21:04 Baso % (Auto) 0.7 % 09/18/21 21:04 Neut # (Auto) 4.30 10^3/uL (1.8-7.7) 09/18/21 21:04 Lymph # (Auto) 3.4 10^3/uL (0.8-4.8) 09/18/21 21:04 Imperial # (Auto) 0.8 10^3/uL (0.2-0.9) 09/18/21 21:04 Eos # (Auto) 0.4 10^3/uL (0.0-0.8) 09/18/21 21:04 Baso # (Auto) 0.1 10^3/uL (0.0-0.1) 09/18/21 21:04 Nucleated RBC % (auto) 0 % 09/18/21 21: Nucleated RBCs # 0.0 /100WBC 09/18/21 21:04 Sodium 142 mmol/L (136-145) 09/18/21 21:04 Potassium 4.1 mmol/L (3.5-5.1) 09/18/21 21:04 Chloride 105 mmol/L (98-107) 09/18/21 21:04 Carbon Dioxide 24 mmol/L (22-29) 09/18/21 21:04 Anion Gap 17.1 (5-19) 09/18/21 21:04 BUN 23 mg/dL (8-23) 09/18/21 21:04 Creatinine 0.7 mg/dL (0.5-0.9) 09/18/21 21:04 GFR Calculation Not Reportable 09/18/21 21:04 Glucose 107 mg/dL (65-115) 09/18/21 21:04 Calculated Osmolality 298 mOsm/kg (285-295) H 09/18/21 21:04 Calcium 9.1 mg/dL (8.5-10.5) 09/18/21 21:04 Total Bilirubin 0.2 mg/dL (0.15-1.2) 09/18/21 21:04 AST 23 U/L (0-32) 09/18/21 21:04 ALT 22 U/L (0-33) 09/18/21 21:04 Alkaline Phosphatase 61 IU/L (35-105) 09/18/21 21:04 Troponin T Baseline 8 ng/L (0-10) 09/18/21 21:04 Total Protein 6.6 g/dL (6.6-8.7) 09/18/21 21:04 Albumin 3.8 g/dL (3.5-5.2) 09/18/21 21:04 Globulin 2.8 g/dL (1.3-4.6) 09/18/21 21:04 EKG Data EKG 1: I personally reviewed and interpreted this EKG as follows: EKG interpretation date: 09/18/21 EKG interpretation time: 20:54 Interpretation: nsr hr [address] or t wave abnormalities qrs 84 qtc 392 Discharge Plan Discharge Patient Disposition: Admitted As Inpatient Clinical Impression: Chest pain Condition: Stable Prescriptions: No Action hydrocodone-acetaminophen [[place]] 5-325 mg tablet 1 tab PO BID PRN (Reason: pain) levothyroxine 125 mcg capsule 125 mcg PO DAILY metoprolol succinate 50 mg tablet extended release 24 hr 50 mg PO BEDTIME Protonix [address] for susp in packet 40 mg PO DAILY tizanidine 2 mg capsule 2 mg PO BID PRN (Reason: Muscle Spasm) cholecalciferol (vitamin D3) 25 mcg (1,000 unit) capsule 25 mcg PO DAILY omega-3 fatty acids 500 mg capsule 500 mg PO DAILY Ultra CoQ10 75 mg capsule 75 mg PO DAILY Rx Instructions: 200mg capsule (DME) back brace Misc See Rx Instructions .ROUTE .MEDSUPPLY Qty: 1 0RF Rx Instructions: As directed Referrals: Nafisa Porter MD [Primary Care Provider] - Coding Level of Care Code ED [employer] Supervisor for Chg Fwd Exam Comprehensive
[2021-09-18 21:08] LABS: Basophils # 0.1 10^3/uL (0.0-0.1); Basophils % 0.7 %; Eosinophils # 0.4 10^3/uL (0.0-0.8); Hematocrit 46.4 % (37.0-47.0); Hemoglobin 15.3 g/dL (11.5-15.3); Lymphocytes # 3.4 10^3/uL (0.8-4.8); Lymphocytes % 38.4 %; Mean Corpuscular Hemoglobin 30.4 pg (28.0-34.0); Mean Corpuscular Volume 92.2 fl (81-99); Mean Platelet Volume 9.8 fL (7.4-10.4); Monocytes # 0.8 10^3/uL (0.2-0.9); Monocytes % 8.5 %; Neutrophils % 48.2 %; Nucleated Red Blood Cells % 0 %; Platelet Count 256 10^3/cmm (130-400); Red Blood Count 5.03 10^6/uL (4.1-5.3); Red Cell Distribution Width 12.5 % (12.1-15.1); White Blood Count 8.9 10^3/uL (4.0-10.0)
[2021-09-18 21:33] LABS: Alanine Aminotransferase 22 U/L (0-33); Albumin Level 3.8 g/dL (3.5-5.2); Alkaline Phosphatase 61 IU/L (35-105); Anion Gap 17.1 (5-19); Aspartate Amino Transferase 23 U/L (0-32); Blood Urea Nitrogen 23 mg/dL (8-23); Calcium 9.1 mg/dL (8.5-10.5); Carbon Dioxide 24 mmol/L (22-29); Chloride 105 mmol/L (98-107); Globulin 2.8 g/dL (1.3-4.6); Glucose 107 mg/dL (65-115); Osmolality Calculated 298 mOsm/kg (285-295); Potassium 4.1 mmol/L (3.5-5.1); Sodium 142 mmol/L (136-145); Total Bilirubin 0.2 mg/dL (0.15-1.2); Total Protein 6.6 g/dL (6.6-8.7)
[2021-09-18 21:34] LABS: Troponin(5th) Baseline 8 ng/L (0-10)
--- NOTE | 2021-09-18 22:51 | PM.HP ---
Providers/Chief Complaint Primary Care Provider: Nafisa Porter MD Chief Complaint: CP History of Present Illness Jenn Diego is a 76 year old female with past medical history of degenerative disc disease of cervical spine, chronic pain, temporal arteritis (biopsy-proven), former smoker, hypothyroidism presented to the ER today for complaint of chest pain that started this evening about 2 hours ago. She said it is a pressure-like pain which is 6 out of 10 in intensity and it radiates down to her jaw and down her left arm. She was given nitro and aspirin by EMS. She says she feels better after taking those tablets. Denies any shortness of breath, denies any diaphoresis at this time. However paramedics stated that patient was having the pain she was quite diaphoretic. Patient also recently had a stress test on September 09 that was abnormal. It did show a very small area of decreased tracer uptake in apical inferior and LV apex with subtle relative reversibility suggesting myocardial scarring with small areas of janice-infarction ischemia. She denies any nausea, vomiting, diarrhea, constipation at this time. When seen she again complained of some chest heaviness that resolved on its own in a few minutes. Daughter present at bedside. Daughter requesting for sublingual nitro at discharge. Patient says that she had the stress test done as an outpatient and has been having on and off chest pain for the last few weeks and therefore the work-up was initiated. She also states her legs have been swelling up and she was recently started on Lasix as an outpatient. ER course 178/78, respiratory 20, pulse 72, pulse ox 97% on room air. First troponin negative. Subsequent troponins are pending at this time. I do not have an EKG to review at this time. We will order. Chest x-ray shows mild cardiomegaly. Medications/Allergies Home Medications Medication Instructions Recorded Confirmed Last Taken Type hydrocodone 5 mg-acetaminophen 325 1 tab PO BID PRN pain 02/18/19 05/31/21 Unknown History mg tablet ([place]) levothyroxine 125 mcg capsule 125 mcg PO DAILY 02/18/19 05/31/21 05/19/21 History metoprolol succinate 50 mg 50 mg PO BEDTIME 02/18/19 05/31/21 05/18/21 History tablet,extended release 24 hr pantoprazole 40 mg granules 40 mg PO DAILY 02/18/19 05/31/2105/18/22 History delayed-release for susp in packet (Protonix) tizanidine 2 mg capsule 2 mg PO BID PRN Muscle Spasm 02/18/19 05/31/21 05/18/21 History cholecalciferol (vitamin D3) 25 25 mcg PO DAILY 05/15/19 05/31/21 05/18/21 History mcg (1,000 unit) capsule coenzyme Q10 75 mg capsule (Ultra 75 mg PO DAILY 05/15/19 05/31/21 05/18/21 History CoQ10) omega-3 fatty acids 500 mg capsule 500 mg PO DAILY 05/15/19 05/31/21 05/18/21 History back brace #1 ea 12/08/20 05/31/21 Unknown Rx Allergies Allergy/AdvReac Type Severity Reaction Status Date / Time Iodinated Contrast Media Allergy Unknown anaphylaxis Verified 05/31/21 08:05 adhesive Allergy red skin Verified 05/31/21 08:05 oxaprozin [From Daypro] Allergy itching, Verified 05/31/21 08:05 rash shellfish derived Allergy swelling Verified 05/31/21 08:05 of throat and face PFSH Acute PFSH: Medical History Cervical disc disorder with myelopathy of mid-cervical region Cervical disc disorder with radiculopathy Stenosis of cervical spine with myelopathy Surgical History History of appendectomy History of carpal tunnel release History of colonoscopy History of hysterectomy History of laparoscopic cholecystectomy History of removal of laparoscopic gastric banding device History of shoulder surgery History of temporal artery biopsy (05/19/21) Hx of cataract surgery Hx of laparoscopic adjustable gastric banding Family History Mother CAD (coronary artery disease) Social History Smoking and tobacco status: former smoker Second hand smoke exposure: No Alcohol intake: never Household members: none Marital status: / Current occupational status: retired and disabled History of recent travel: No Vitals/I&O/Wt Last Vital Signs Pulse 72 09/18/21 20:55 Resp 20 H 09/18/21 20:55 BP 178/78 09/18/21 20:55 Pulse Ox 97 09/18/21 20:55 O2 Del Method 09/18/21 20:55 Weight last 48 hrs Weight 108.862 kg Physical Exam Narrative: General: Alert oriented x3, patient seen sitting up in bed appearing comfortable with daughter at bedside. HEENT: Normocephalic, atraumatic, EOMI, breathing normally, no acute distress Cardio: Regular rate rhythm, normal S1-S2 Respiratory: Good bilateral air entry, no wheezes no rhonchi appreciated GI: Abdomen soft, nontender, nondistended, bowel sounds + Extremities: 1+ bilateral lower extremity edema Data : 09/18/21 21:04 09/18/21 21:04 A&P Assessment and plan (1) Chest pain: Status: Acute (2) Cervical disc disorder with radiculopathy: Status: Acute (3) Right temporal headache: Status: Acute (4) Cervical disc disorder with myelopathy of mid-cervical region: Status: Chronic Plan #Chest pain, rule out ACS #Recent stress test with questionable area of reduced tracer uptake #Chronic pain secondary to cervical degenerative disc disease #History of temporal arteritis, biopsy-proven ? We will trend troponins. Initial troponin is negative. ? Check echo to look for wall motion abnormalities ? We will do serial EKGs ? Nitro as needed for pain. If she does have further episodes overnight I will consider Nitropaste but will hold off for now. ? Continue on aspirin, statin, beta-erick, will cover with therapeutic Lovenox ? I will keep her n.p.o. at midnight in case of plan for cardiac cath in a.m. -Continue levothyroxine ? Continue omeprazole ? Continue hydrocodone as needed for pain twice daily. ? Check echo -Cardiology consulted by ER physician. Dr. Dotson to evaluate patient in AM. Full code DVT prophylaxis: Therapeutic Lovenox Attestations Medical Necessity Statement*: Will cross 2 midnight for management of chest pain. Coding Level of Care Code Acute Securities Attorney for Kody Arshad Diagnoses Chest pain R07.9 Cervical disc disorder with radiculopathy M50.10 Right temporal headache R51.9 Cervical disc disorder with myelopathy of mid-cervical region M50.020
[2021-09-18 23:03] VITALS: BP 124/66; PULSE 67; RESP 18; O2SAT 97
[2021-09-18 23:28] LABS: Troponin 5 2HR 10.14 ng/L (0-10)
[2021-09-18 23:33] LABS: Troponin 5 2HR Delta 2.14 ABS# (0-10)
[2021-09-18 23:45] LABS: Cholesterol 252 mg/dL (0-200); HDL Cholesterol 56 mg/dL (60-100); LDL Cholesterol Calculated 166 mg/dL (50-129); LDL HDL Ratio 2.96 RATIO (0.00-3.22); NT Pro B Type Natriuretic Pept 275 pg/mL (0-450); Thyroid Stimulating Hormone 0.73 uIU/mL (0.27-4.20); Triglycerides 149 mg/dL (0-150)
[2021-09-18 23:46] LABS: Estmated Average Glucose 97
[2021-09-19] VITALS (43 sets, daily range): BP systolic 102–179; BP diastolic 45–96; PULSE 59–161; RESP 13–28; TEMP 36.4–36.8; O2SAT 90–100
[2021-09-19] MEDS: enoxaparin 120 mg/0.8 mL Syringe 110 MG SUBCUT (00:26)
--- NOTE | 2021-09-19 01:35 | PC.NURSE ---
Report given to ICU Koffi
--- NOTE | 2021-09-19 03:13 | ECG_ITS ---
[facility] Test Date: 2021-09-19 Pat Name: Jenn Diego Department: Room: [facility] Gender: Female Bartacker: : 1945 Requested By: Sudhakar Tapia Order Number: [id number] Davidson MD: Philip Dotson M.D. Measurements Intervals Silver Rate: 63 P: 10 WY: 164 QRS: 19 QRSD: 76 T: 21 QT: 421 QTc: 434 Interpretive Statements SINUS RHYTHM Compared to ECG 09/18/2021 20:54:01 Supraventricular rhythm no longer present Electronically Signed On 09-20-2021 0:52:43 CDT by Philip Dotson M.D. [id number]
[2021-09-19] MEDS: nitroglycerin 1 gm/inch oint Pkt 0.5 INCH TOPICAL (04:43)
--- NOTE | 2021-09-19 05:15 | ECG_ITS ---
[facility] Test Date: 2021-09-19 Pat Name: Jenn Diego Department: Room: [facility] Gender: Female Magnetic Resonance Imaging Director: : 1945 Requested By: Nevaeh Lim Order Number: [id number] Davidson MD: Philip Dotson M.D. Measurements Intervals [place] Rate: 62 P: 24 DE: 197 QRS: 15 QRSD: 83 T: 18 QT: 417 QTc: 426 Interpretive Statements SINUS RHYTHM Nonspecific T wave changes Compared to ECG 09/19/2021 03:13:33 No significant changes Electronically Signed On 09-20-2021 0:53:32 CDT by Philip Dotson M.D. [id number]
[2021-09-19 06:29] LABS: Basophils # 0.1 10^3/uL (0.0-0.1); Basophils % 0.6 %; Eosinophils # 0.4 10^3/uL (0.0-0.8); Eosinophils % 4.5 %; Hematocrit 43.9 % (37.0-47.0); Hemoglobin 14.6 g/dL (11.5-15.3); Lymphocytes # 3.5 10^3/uL (0.8-4.8); Lymphocytes % 43.9 %; Mean Corpuscular HGB Conc 33.3 g/dL (30.0-36.0); Mean Corpuscular Hemoglobin 31.1 pg (28.0-34.0); Mean Corpuscular Volume 93.6 fl (81-99); Mean Platelet Volume 10.5 fL (7.4-10.4); Monocytes # 0.7 10^3/uL (0.2-0.9); Monocytes % 8.3 %; Neutrophils # 3.44 10^3/uL (1.8-7.7); Neutrophils % 42.6 %; Nucleated Red Blood Cells % 0 %; Platelet Count 235 10^3/cmm (130-400); Red Blood Count 4.69 10^6/uL (4.1-5.3); Red Cell Distribution Width 12.5 % (12.1-15.1); White Blood Count 8.1 10^3/uL (4.0-10.0)
[2021-09-19 07:26] LABS: Troponin 5 6HR 9.26 ng/L (0-10)
[2021-09-19 07:28] LABS: Alanine Aminotransferase 20 U/L (0-33); Albumin Level 3.7 g/dL (3.5-5.2); Alkaline Phosphatase 55 IU/L (35-105); Anion Gap 14.6 (5-19); Aspartate Amino Transferase 19 U/L (0-32); Blood Urea Nitrogen 19 mg/dL (8-23); Calcium 8.7 mg/dL (8.5-10.5); Carbon Dioxide 26 mmol/L (22-29); Chloride 105 mmol/L (98-107); Globulin 2.3 g/dL (1.3-4.6); Glucose 84 mg/dL (65-115); Magnesium 1.8 mg/dL (1.7-2.3); Osmolality Calculated 295 mOsm/kg (285-295); Potassium 3.6 mmol/L (3.5-5.1); Sodium 142 mmol/L (136-145); Total Bilirubin 0.5 mg/dL (0.15-1.2)
[2021-09-19] MEDS: lisinopril 5 mg Tablet PO (08:44)
[2021-09-19] MEDS: pantoprazole DR 40 mg Tablet PO (08:44)
[2021-09-19] MEDS: levothyroxine 125 mcg Tablet PO (08:44)
[2021-09-19] MEDS: aspirin 81 mg EC Tablet PO (08:44)
--- NOTE | 2021-09-19 11:07 | USCV_ITS ---
Jenn Diego Age: 76 Gender: F : 1945 Exam Date: 09/19/2021 13:33 Ordering Phys: Artem Shields MD Technologist: Efe Hanson [place] [facility] [place]: unsable angina BP: / HR: Rhythm: Sinus Technical Quality: Adequate MEASUREMENTS (Male / Female) Normal Values FINDINGS Left Ventricle Normal left ventricular size and systolic function, EF 65% . No gross wall motion abnormalities.mild left ventricular hypertrophy. Grade I/IV diastolic dysfunction (abnormal relaxation filling pattern), normal to mildly elevated filling pressures. Right Ventricle The right ventricle is normal in size and function. Right Atrium The right atrium is normal in size. Left Atrium Mildly increased left atrial size. Mitral Valve Thickened mitral valve. Aortic Valve Thickened aortic valve. Tricuspid Valve Trace tricuspid valve regurgitation. Pulmonic Valve Pulmonic valve not well visualized. Pericardium Normal pericardium without effusion. Aorta Normal ascending aorta dimension. IVC The inferior vena cava pulmonary and hepatic veins appear normal. CONCLUSIONS Normal left ventricular size and systolic function, EF 65% . No gross wall motion abnormalities.mild left ventricular hypertrophy. Grade I/IV diastolic dysfunction (abnormal relaxation filling pattern), normal to mildly elevated filling pressures. Thickened mitral valve. Thickened aortic valve. Trace tricuspid valve regurgitation. Estimated pulmonary artery peak systolic pressure 48 mm Hg- moderate pulmonary hypertension The mean PA pressure was 36 mmHg. There is no pericardial effusion. There are no intracardiac masses. No similar previous studies are available for comparison Dr Philip Dotson MD [facility] (Electronically Signed) Final Date: 19 September 2021 17:46 S
[2021-09-19 11:16] LABS: Troponin 5 6HR Delta 1.26 ng/L (0-12)
[2021-09-19] MEDS: isosorbide mononitrate ER 30 mg Tablet PO (11:23)
[2021-09-19 12:17] LABS: Iron 129 ug/dL (37-145); Percent Saturation 60.5 % (20-50); Total Iron Binding Capacity 213 mcg/dl; Unsaturated Iron Binding 84 ug/dL (112-347)
[2021-09-19] MEDS: acetaminophen 325 mg Tablet 650 MG PO (12:50)
--- NOTE | 2021-09-19 14:14 | P.CONIM_ITS ---
Providers/Reason For Consult Consulting Physician/Specialty*: NAHEED Dotson MD/cardiology Reason for Consult*: Patient is presenting with a prolonged episode of chest pain. Had a recent Myocardial perfusion imaging which was found to be abnormal. Requesting Physician: Dr. Shields Attending Physician: Artem Shields MD Primary Care Provider: Nafisa Porter MD History of Present Illness History of Present Illness Jenn Diego is a 76 year old female was admitted to hospital through the emergency room where she presented with complaints of blunt episode of chest pain. This patient has been having episodes of chest pain for the last month or so. Yesterday the pain started around 6:00 in the evening. The pain was in the upper substernal region, radiated to the neck and also the left arm. The intensity of the pain was 9/10. She did not have any associated nausea or vomiting. Might have had some shortness of breath. No palpitation, dizziness or syncopal episode. she was brought to the emergency room by ambulance. In the ambulance, she was given 2 sublingual nitro. The pain got better. Chest pain has been waxing and waning since then. Even now, she has no complete relief of the pain. The intensity of the chest pain is currently 10 out of 10.. She has no associated fever, chills or cough. No palpitation or syncopal episode. She had a Myocardial perfusion imaging on 09/09/2021. The results are as mentioned below. She has a history of hypothyroidism, dyslipidemia and smoking abuse. Denies any orthopnea or PND. No fever or chills. No cough. Review of Systems Narrative: CONSTITUTIONAL: No fever or chills. EYES: No blurring of vision or other visual disturbances lately. ENT: No hoarseness of voice, auditory disturbances or sore throat. CARDIOVASCULAR: As mentioned above. RESPIRATORY: No significant cough. GASTROINTESTINAL: No hematemesis or melena. GENITOURINARY: No dysuria or hematuria. INTEGUMENTARY: No skin rashes or history of skin cancer. NEURO: No transient ischemic attacks or amaurosis. PSYCHIATRIC: No history of psychosis or major depression. HEMATOLOGIC: No bleeding disorders or significant anemia. ENDOCRINE: No history of polyuria or polydipsia. MUSCULOSKELETAL: Has chronic pains of the lower back and cervical spines. Medications/Allergies Home Medications Medication Instructions Recorded Confirmed Last Taken Type metoprolol succinate 50 mg 50 mg PO BEDTIME 02/18/19 09/19/21 09/17/21 History tablet,extended release 24 hr omega-3 fatty acids 500 mg capsule 500 mg PO BEDTIME 05/15/19 09/19/21 05/18/21 History back brace #1 ea 12/08/20 09/19/21 Unknown Rx cholecalciferol (vitamin D3) 50 50 mcg PO BEDTIME 09/19/21 09/19/21 Unknown History mcg (2,000 unit) capsule (Vitamin D3) coenzyme Q10 75 mg capsule (Ultra 75 mg PO BEDTIME 09/19/21 09/19/21 Unknown History CoQ10) furosemide 20 mg tablet 20 mg PO QAM 09/19/21 09/19/21 Unknown History hydrocodone 5 mg-acetaminophen 325 1 tab PO Q4H PRN Pain 09/19/21 09/19/21 Unknown History mg tablet levothyroxine 112 mcg tablet 112 mcg PO QAM 09/19/21 09/19/21 Unknown History multivitamin 1 tab PO DAILY@12 09/19/21 09/19/21 Unknown History pantoprazole 40 mg tablet,delayed 40 mg PO BID 09/19/21 09/19/21 Unknown History release potassium chloride 10 mEq 10 meq PO QAM 09/19/21 09/19/21 Unknown History tablet,extended release tizanidine 2 mg tablet 4 mg PO BEDTIME 09/19/21 09/19/21 Unknown History triamcinolone acetonide 0.1 % 1 applic topical TID PRN Rash 09/19/21 09/19/21 Unknown History topical cream Allergies Allergy/AdvReac Type Severity Reaction Status Date / Time Iodinated Contrast Media Allergy Unknown anaphylaxis Verified 09/19/21 08:06 adhesive Allergy red skin Verified 09/19/21 08:06 oxaprozin [From Daypro] Allergy itching, Verified 09/19/21 08:06 rash shellfish derived Allergy swelling Verified 09/19/21 08:06 of throat and face Current Medications Generic Name Dose Route Start Last Admin Trade Name Freq PRN Reason Stop Dose Admin Acetaminophen 650 mg 09/18/21 23:02 09/19/21 12:50 Acetaminophen 325 Mg Tablet PO 650 mg Q6H PRN Administration Mild/Mod Pain Or Temp >/= 101 Aspirin 81 mg 09/19/21 09:00 09/19/21 08:44 Aspirin 81 Mg Ec Tablet PO 81 mg DAILY PETE Administration Isosorbide Mononitrate 30 mg 09/19/21 11:10 09/19/21 11:23 Isosorbide Mononitrate Er 30 Mg Tablet PO 30 mg DAILY PETE Administration Levothyroxine Sodium 125 mcg 09/19/21 09:00 09/19/21 08:44 Levothyroxine 125 Mcg Tablet PO 125 mcg DAILY PETE Administration Nitroglycerin 0.5 inch 09/19/21 03:45 09/19/21 04:43 Nitroglycerin 1 Gm/Inch Oint Pkt TOPICAL 0.5 inch ONCE PETE Administration Pantoprazole Sodium 40 mg 09/19/21 09:00 09/19/21 08:[address] 40 Mg Tablet PO 40 mg DAILY PETE Administration PFSH Acute PFSH: Medical History Cervical disc disorder with myelopathy of mid-cervical region Cervical disc disorder with radiculopathy Stenosis of cervical spine with myelopathy Surgical History History of appendectomy History of carpal tunnel release History of colonoscopy History of hysterectomy History of laparoscopic cholecystectomy History of removal of laparoscopic gastric banding device History of shoulder surgery History of temporal artery biopsy (05/19/21) Hx of cataract surgery Hx of laparoscopic adjustable gastric banding Family History Mother CAD (coronary artery disease) Social History Smoking and tobacco status: former smoker Second hand smoke exposure: No Alcohol intake: never Household members: none Marital status: / Current occupational status: retired and disabled History of recent travel: No Vitals/I&O/Wt Last Vital Signs Temp 98.1 F 09/19/21 12:00 Pulse 70 09/19/21 13:51 Resp 20 H 09/19/21 12:00 BP 158/68 09/19/21 12:00 Pulse Ox 95 09/19/21 12:00 O2 Del Method 09/19/21 12:00 09/18/21 09/19/21 09/19/21 22:59 06:59 14:59 Intake Total 90 / 90 Output Total 600 / 600 225 / 225 Balance -510 / -510 -225 / -225 Weight last 48 hrs Weight 240 lb Physical Exam Narrative: GENERAL: The patient is alert and oriented times three. Not in any acute distress. Morbidly obese HEENT: No significant pallor, icterus or lymphadenopathy.Oral cavity: There are no mucous membrane lesions. NECK: Trachea appears to be central. No masses noted. No JVD or thyromegaly appreciated. RESPIRATORY: Chest is symmetrical. No intercostals muscle retraction or any accessory muscle activation. There is no chest wall tenderness. Breath sounds are heard bilaterally. No rales or rhonchi heard. No evidence of any consolidation. BREASTS: Deferred. HEART: The heart sounds are normal. No S3 or S4. No significant murmurs. No pericardial rub ABDOMEN: No vessel pulsations or distention. No tenderness. No organomegaly appreciated. Bowel sounds are normally heard. : Deferred. RECTAL: Deferred. LYMPHATIC: No lymphadenopathy noted in the neck. EXTREMITIES: No edema or cyanosis. No clubbing. MUSCULOSKELETAL: No acute joint deformities or swelling SKIN: There are no significant rashes or ecchymosis NEUROPSYCHIATRIC: The patient is alert and oriented x3. Appears to be in a good mood. No tremors or rigidity noted. Data : 09/19/21 05:30 09/19/21 05:30 Other Labs: Laboratory Last Values WBC 8.1 10^3/uL (4.0-10.0) 09/19/21 05:30 RBC 4.69 10^6/uL (4.1-5.3) 09/19/21 05:30 Hgb 14.6 g/dL (11.5-15.3) 09/19/21 05:30 Hct 43.9 % (37.0-47.0) 09/19/21 05:30 MCV 93.6 fl (81-99) 09/19/21 05:30 MCH 31.1 pg (28.0-34.0) 09/19/21 05:30 MCHC 33.3 g/dL (30.0-36.0) 09/19/21 05:30 RDW 12.5 % (12.1-15.1) 09/19/21 05:30 Plt Count 235 10^3/cmm (130-400) 09/19/21 05:30 MPV 10.5 fL (7.4-10.4) H 09/19/21 05:30 Neut % (Auto) 42.6 % 09/19/21 05:30 Lymph % (Auto) 43.9 % 09/19/21 05:30 [place] % (Auto) 8.3 % 09/19/21 05:30 Eos % (Auto) 4.5 % 09/19/21 05:30 Baso % (Auto) 0.6 % 09/19/21 05:30 Neut # (Auto) 3.44 10^3/uL (1.8-7.7) 09/19/21 05:30 Lymph # (Auto) 3.5 10^3/uL (0.8-4.8) 09/19/21 05:30 [place] # (Auto) 0.7 10^3/uL (0.2-0.9) 09/19/21 05:30 Eos # (Auto) 0.4 10^3/uL (0.0-0.8) 09/19/21 05:30 Baso # (Auto) 0.1 10^3/uL (0.0-0.1) 09/19/21 05:30 Nucleated RBC % (auto) 0 % 09/19/21 05:30 Nucleated RBCs # 0.0 /100WBC 09/19/21 05:30 Sodium 142 mmol/L (136-145) 09/19/21 05:30 Potassium 3.6 mmol/L (3.5-5.1) 09/19/21 05:30 Chloride 105 mmol/L (98-107) 09/19/21 05:30 Carbon Dioxide 26 mmol/L (22-29) 09/19/21 05:30 Anion Gap 14.6 (5-19) 09/19/21 05:30 BUN 19 mg/dL (8-23) 09/19/21 05:30 Creatinine 0.6 mg/dL (0.5-0.9) 09/19/21 05:30 GFR Calculation Not Reportable 09/19/21 05:30 Glucose 84 mg/dL (65-115) 09/19/21 05:30 Estimat Average Glucose 97 09/18/21 21:04 Hemoglobin A1c 5.0 % (4.0-6.0) 09/18/21 21:04 Calculated Osmolality 295 mOsm/kg (285-295) 09/19/21 05:30 Calcium 8.7 mg/dL (8.5-10.5) 09/19/21 05:30 Magnesium 1.8 mg/dL (1.7-2.3) 09/19/21 05:30 Iron 129 ug/dL (37-145) 09/19/21 12:00 TIBC 213 mcg/dl 09/19/21 12:00 % Saturation 60.5 % (20-50) H 09/19/21 12:00 Unsat Iron Binding 84 ug/dL (112-347) L 09/19/21 12:00 Total Bilirubin 0.5 mg/dL (0.15-1.2) 09/19/21 05:30 AST 19 U/L (0-32) 09/19/21 05:30 ALT 20 U/L (0-33) 09/19/21 05:30 Alkaline Phosphatase 55 IU/L (35-105) 09/19/21 05:30 Troponin T Baseline 8 ng/L (0-10) 09/18/21 21:04 Troponin T 120 Minute 10.14 ng/L (0-10) H 09/18/21 22:56 Delta Troponin T 2.14 ABS# (0-10) 09/18/21 22:56 Troponin T Hi Sens 6Hr 9.26 ng/L (0-10) 09/19/21 05:30 Troponin T Hi Sens 6Hr Delta 1.26 ng/L (0-12) 09/19/21 05:30 NT-Pro-B Natriuret Pep 275 pg/mL (0-450) 09/18/21 21:04 NT-Pro-B Natriuret Pep Cancelled 09/18/21 21:04 Total Protein 6.0 g/dL (6.6-8.7) L 09/19/21 05:30 Albumin 3.7 g/dL (3.5-5.2) 09/19/21 05:30 Globulin 2.3 g/dL (1.3-4.6) 09/19/21 05:30 Triglycerides 149 mg/dL (0-150) 09/18/21 21:04 Cholesterol 252 mg/dL (0-200) H 09/18/21 21:04 LDL Cholesterol, Calc 166 mg/dL (50-129) H 09/18/21 21:04 HDL Cholesterol 56 mg/dL (60-100) L 09/18/21 21:04 LDL/HDL Ratio 2.96 RATIO (0.00-3.22) 09/18/21 21:04 Cholesterol/HDL Ratio 4.50 mg/dL (0.0-4.40) H 09/18/21 21:04 TSH 0.73 uIU/mL (0.27-4.20) 09/18/21 21:04 MPI: My impression: 1.? Myocardial perfusion imaging revealing a small area of decreased tracer ?uptake in the apical inferior and LV apex with a subtle areas of reversibility ?suggesting myocardial scarring with some very small areas of janice-infarction ?ischemia. ?2.? Normal ejection fraction 74%. ?3.? LV wall motion analysis revealing no gross wall motion normalities. ?4.? Normal LV volume. ?No similar previous studies are available for comparison EKG 1: My Interpretation: Normal sinus rhythm with a rate of [address] Ts. EKG computer-generated impression: Chest X-Ray 09/18/21 20:48 IMPRESSION: No acute findings. A&P Assessment and plan (1) Chest pain: Chest pain is somewhat atypical. However in view of the multiple risk factors- age, obesity, dyslipidemia, history of smoking abuse, etc. may suggest underlying coronary ischemia. For further evaluation of the symptoms, may benefit from a cardiac catheterization. Optimizing the medical treatment is not an option. Echocardiogram would be helpful to evaluate LV function and other pathology. I will review the echocardiogram relative recommendations will be made. Status: Acute (2) Cervical disc disorder with radiculopathy: This may be a contributing factor for the pain. Status: Acute (3) Morbid obesity: Lifestyle modification he is going to be an integral part of management. Status: Acute (4) Dyslipidemia: Patient may be started on Lipitor 40 mg p.o. daily. Her lipid profile and liver profile need to be followed up. Status: Acute Plan After reviewing the above and also based on the physical he progress, further recommendations will be made. Thank you for the opportunity to eval this patient make these recommendations Coding Level of Care Code Acute Boat Puller for Chg Fwd History Expanded Problem Focused Exam Expanded Problem Focused Medical Decision Making Moderate Complexity Diagnoses Chest pain R07.9 Cervical disc disorder with radiculopathy M50.10 Morbid obesity E66.01 Dyslipidemia E78.5
--- NOTE | 2021-09-19 15:25 | PC.NURSE ---
No prescriptions at discharge.
--- NOTE | 2021-09-19 15:46 | PM.MISC ---
Miscellaneous Note Purpose of Documentation: Cross coverage note. Admitted overnight. Note: Patient admitted overnight. Seen in ICU. Denies any further chest pain. Has Nitropaste applied overnight. Denies any nausea vomiting, headache. Lab work appreciated. Troponins negative. Blood pressure usually ranging systolic more than 150s, heart rate ranging in high 50s to low 60s A1c, lipid panel appreciated. Will consult cardiology for possible cardiac angiogram given positive stress test as an outpatient Continue with aspirin, statin. Goal blood pressure less than 140/90 mmHg. Blood pressure slightly elevated. Add Imdur 30 mg daily. Metoprolol 25 mg twice daily. Increased dose of lisinopril to 20 mg daily. Start on cardiac diet. N.p.o. after midnight for possible cardiac angiogram in a.m. Monitor for chest pain. Transfer to CSU once bed available. Heparin 5000 every 12 hourly.
[2021-09-19] MEDS: heparin 5,000 unit/mL INJ 1 mL 5000 UNIT SUBCUT (15:50)
--- NOTE | 2021-09-19 18:18 | PC.NURSE ---
Shift Summary Pt has stated she has constant CP at a 2 on our pain scale. She states this is normal for her. Has had family at bedside most of the day. Report given to CSU. Transporting pt and belongings via hospital bed.
[2021-09-19] MEDS: metoprolol tartrate 50 mg Tablet 25 MG PO (20:52)
[2021-09-20] VITALS (25 sets, daily range): BP systolic 125–177; BP diastolic 56–91; PULSE 54–103; RESP 12–32; TEMP 36.7–36.9; O2SAT 93–99
[2021-09-20] MEDS: heparin 5,000 unit/mL INJ 1 mL 5000 UNIT SUBCUT (03:48)
--- NOTE | 2021-09-20 08:20 | XACV_ITS ---
Exam Room: [facility] Ht: 155 cm Wt: 109 kg BSA: 2.23 m2 Gender: Female : 1945 Any Known Allergies: Other Exam Priority: Routine Procedure(s): Procedure Description: Diagnostic procedure Procedure Description: Left Heart Catheterization Procedure Description: Coronary Angiography Diagnostic Cath Status: Urgent Diagnostic Findings * Left main artery: Patent LAD: Mild to moderate luminal irregularities. Left circumflex artery: Patent. RCA: Mild luminal irregularities. * Indication: Worsening angina/ abnormal stress test. * Coronary angiography shows right dominance. Conclusions 1. Left main artery: Patent LAD: Mild to moderate luminal irregularities. Left circumflex artery: Patent. RCA: Mild luminal irregularities. Recommendations * Aggressive risk factor modification. * Outpatient cardiology follow up in 4 weeks. Interventional RX Recommendation: medical therapy and/or counseling Diagnostic RX Recommendation: medical therapy and/or counseling Pressures Phase:Rest AO : 170 / 71 ( 112 ) @ 10:43:00 AM 173 / 73 ( 114 ) @ 10:43:00 AM LV : 165 / -9 / 15 @ 10:42:00 AM 166 / -13 / 13 @ 10:43:00 AM Valves Phase:DefaultPhase AV : 0.0 @ 9:49:27 AM AV Mean Gradient: 0.0 @ 9:49:27 AM Clinical Evaluation EBL: 5mL-10mL Procedural Details Procedure Consent Obtained. Physician arrived. Admit Source: In Patient. Pre-Procedure Time Out. Identified patient by full name and date of as verbalized by the patient/guarantor. Does the consent match the physician's order: Yes. Accurate & Complete Informed Consent: Yes. Inpatient/Outpatient History & Physical on Chart: Yes. If H&P is completed, is and addenduem needed: No; If yes, is the addendum complete: N/A. Visualize and Verify Site with Patient/Guarantor: N/A. Relevant Radiology Images available: N/A. The risks, benefits, and alternatives of sedation and/or procedure were discussed by physician. The patient agrees to continue. Procedure started. [facility] Clinical Fraility Score: 3: Managing Well. Wrapper Leaf Inspector Indications: Worsening Angina. Chest Pain Symptom Assessment: Atypical Angina. Correct patient, site and procedure confirmed by cath team. Current diagnosis: Chest Pain. PERRLA. Strong, equal hand account planner bilaterally. Lungs clear x 5 lobes. IV Site on Arrival: 18 gauge in the left forearm. IV Fluids: 0.9% NaCl at KVO. 0 mL infused prior to boot and shoe laborer. Pre Procedural Pulses: bilateral radial was 3+. Oxygen started at 2liters/min via nasal canula. right radial was prepped with chloroprep then draped in the usual sterile fashion. right groin was prepped with chloroprep then draped in the usual sterile fashion. Baseline sample Acquired. HR: 79 BPM. Physician notified. Physician scrubbed in. Immediate Pre-Procedure Time Out. Correct Patient: Yes; Correct Procedure: Yes; Correct Site: Yes; Correct Patient Position: Yes; Correct Supplies: Yes; Dried Flammable Prep: Yes; Blood Products Available: No;. Lidocaine 1% infiltrated to the right radial. Arterial access obtained. A 5 uzbek TIG catheter in over wire. Wire out. Multiple views taken of left coronary artery. Catheter redirected to the RCA. Multiple views taken of right coronary artery. EDP Sample taken: LV 165/-10,15; HR: 86 BPM; SpO2: 92%. Pullback taken: LV 166/-14,13; AO 170/71(112); Mean: 0mmHg, Peak to Peak: 0mmHg, SEP: 18sec/min; HR: 81 BPM; SpO2: 92%. Catheter removed over the standard wire. Wire out. A TR Band was successful obtaining hemostatsis at the Right Radial artery insertion site. Physician scrubbed out. Post Procedure: Pulses reassessed and unchanged. PERRLA. Strong, equal hand account planner bilaterally. No VTE prophylaxis required. Medication's Wasted: Lidocaine 1% = 2 mL. Medication's Wasted: Nitro = 49.8 mg. Medication's Wasted: Heparin = 1000 unit. Medication's Wasted: Other = Fentanyl 50 mcg. Total IV fluids: 50 mL. Post-op diagnosis: Non-obstructive CAD. Complications: None. Estimated blood loss: 5mL-10mL. Responsiveness - Normal response to verbal stimuli; alert and oriented, PERRLA. Airway - Unaffected, no intervention required; spontaneous ventilation. Circulation: W/N/L, pulses unchanged. Nausea/Vomiting: N/A. Procedure completed. Patient transferred by wheelchair to 1st floor. Vital chart was stopped. Access Site Site: Right Radial artery Sheath Size: 6 Fr Hemostasis Method: TR Band Hemostasis Success: Successful Procedure Medications Start: 9:31 AM Stop: 9:31 AM Medication: Diphendryamine Amount: 50 mg Route: I.V. Start: 9:31 AM Stop: 9:31 AM Medication: Solu-Medrol (methylprednisolone) Amount: 125 mg Route: I.V. Start: 9:32 AM Stop: 9:32 AM Medication: Versed Amount: 1 mg Route: I.V. Start: 9:32 AM Stop: 9:32 AM Medication: Fentanyl Amount: 50 mcg Route: I.V. Start: 9:35 AM Stop: 9:35 AM Medication: Nitrogylcerin Amount: 200 mcg Route: I.A. Start: 9:36 AM Stop: 9:36 AM Medication: Versed Amount: 1 mg Route: I.V. Start: 9:36 AM Stop: 9:36 AM Medication: Heparin Amount: 5000 units Route: I.V. I, the attending physician, have reviewed and verified all procedure medications. Yes, all medications given per verbal order History/Risk Factors Hypertension: No Dyslipidemia: Yes Peripheral Arterial Disease (PAD): No Myocardial Infarction (TN): No Obesity: No Renal Disease: No Tobacco Use: Former Prior Interventions PCI: No CABG: No Valve Surgery: No Report Signatures Finalized by Roshan Logan MD on 10/01/2021 12:57 PM
--- NOTE | 2021-09-20 09:21 | PM.PN ---
Subjective Subjective: Patient is doing well. had coronary angiogram that showed non obstructive CAD. Vitals/I&O/Wt Last Vital Signs Temp 98.2 F 09/20/21 08:00 Pulse 67 09/20/21 08:00 Resp 16 09/20/21 08:00 BP 160/76 09/20/21 08:00 Pulse Ox 95 09/20/21 08:00 O2 Del Method 09/20/21 08:00 09/19/21 09/20/21 09/20/21 22:59 06:59 14:59 Intake Total 360 / 360 240 / 600 Balance 360 / 135 240 / 375 Weight last 48 hrs Weight 240 lb Physical Exam Narrative: GENERAL: Patient is alert, awake and oriented x3. [] NECK: No jugular vein distension. [] HEENT: No cyanosis. No icterus. No pallor. [] HEART: Regular S1 and S2. No murmur, rub or gallop. [] LUNGS: Clear to auscultate bilaterally. [] ABDOMEN: Soft, nontender and nondistended. Positive bowel sounds. No guarding, rebound or tenderness. [] CENTRAL NERVOUS SYSTEM: Grossly nonfocal. [] EXTREMITIES: Lower extremities with 1+ edema bilaterally. Pulses palpable in the lower extremities, both dorsalis pedis and posterior tibial. [] Data : 09/19/21 05:30 09/19/21 05:30 A&P Assessment and plan (1) Chest pain: Patient's stress test was abnormal and underwent coronary angiogram today that showed non-obstructive CAD. Medical therapy Status: Acute (2) Cervical disc disorder with radiculopathy: Possible contributing factor Status: Inactive (3) Morbid obesity: Status: Inactive (4) Dyslipidemia: Continual atorvastatin Status: Acute Plan Patient is stable to be discharged from cardiology standpoint. Attestations Medical Necessity Statement*: Care expected to cross 2 midnights. Coding Level of Care Code Acute Powder Loader for Kody Arshad Diagnoses Chest pain R07.9 Cervical disc disorder with radiculopathy M50.10 Morbid obesity E66.01 Dyslipidemia E78.5
--- NOTE | 2021-09-20 09:21 | W.PM.OPSUD ---
Surgery/Procedure H&P Update DATE OF PROCEDURE: September 20, 2021 DATE H&P PERFORMED: 09/20/21 H&P UPDATE INFORMATION: I have reviewed H&P completed within last 30 days, I have examined patient prior to procedure and No changes to prior documentation PREOP DIAGNOSIS: Chest pain/abnormal stress test PRIMARY INDICATION FOR PROCEDURE: Chest pain/abnormal stress test PLANNED PROCEDURE: Left heart cath with possible percutaneous coronary intervention PATIENT REASSESSED PRIOR TO SEDATION, WITH NO CHANGE NOTED: Yes PHYSICAL EXAM: alert, oriented x 3, clear to auscultation bilaterally and regular rate & rhythm AIRWAY EVAL/ANESTHESIA PLAN: ASA III, Local Anesthesia and Risks, benefits & alternatives of sedation and/or procedure discussed ADDITIONAL INFORMATION: Moderate sedation
--- NOTE | 2021-09-20 10:14 | PC.CHAP ---
Pastoral Care Encounter/Spiritual Assessment Type of Contact [] Declined film composer visit [] Patient/Family/Request visit [] Outpatient visit [] Follow-up visit [] Physician referral [] Code/Alert [] Routine visit [] Staff referral [] Actively dying [] Patient sleeping [] Family support [] [] Out of room [] Palliative care [] [] Receiving care in room [] Pre-surgical visit [] Trauma [] Long length of stay [] ICU visit [] Other: Relational/Emotional Strength [] Patient feels connected with others/family/visitors/staff [] Distress [] Loneliness/isolation [] Abandonment Spirituality of Patient [x] Person of Effie [] Attends Episcopal of their Effie [] Believes in Prayer [] Reads Bible or Mandaen materials [] There are Spiritual issues to be addressed Bonsai Culturist Interventions [x] Prayer x[] Active listening [] Non-anxious presence [] Spiritual/emotional support [] Crisis/trauma care [] Spiritual counseling [] Bereavement support [] Provided bereavement packet [] Provided Bible/devotional materials [] Provided toy/stuffed animal, coloring book to patient or family member [] Provided Communion [] Anointing/[place] [] Salvation []x Completed spiritual assessment [] Other: Impact on Illness or Injury [] Angry [] Fearful [] Anxious [] Often cries [] Exhaustion [] Unable to work [] Unable to attend buddhist [] Unable to walk/stand [] Unable to read [] Unable to drive [] Unable to eat/drink [] Unable to sleep [] Unable to be with family [] Patient intubated [] Other: Summary Time spent with patient x
--- NOTE | 2021-09-20 10:17 | PC.NURSE ---
received from cardiac agriculture laborer at 0950 via w/c.report received.pt is alert and awake and oriented x 4.sr on monitor.denies pain at present.right radial tr band on and inflated.right hand is warm to touch and with brisk capillary refill.no hematoma noted.palpable radial pulse noted distal to tr band.instructed in activity restrictions s/p radial arterial procedure..and instructed to notify staff for any bleeding,pain,numbness,sob..or for any concerns at all.pt verb understanding of instructions
--- NOTE | 2021-09-20 10:35 | P.DS_ITS ---
Discharge Providers Date of Admission: 09/19/21 00:37 Date of Discharge: September 20, 2021 Attending Provider at Admission: Nevaeh Lim MD Attending Provider at Discharge: Artem Shields MD Consults: Cardiology: Dr. Dotson Primary Care Provider: Nafisa Porter MD Diagnoses at Discharge Discharge Diagnosis (1) Chest pain: Status: Acute (2) Cervical disc disorder with radiculopathy: Status: Acute (3) Morbid obesity: Status: Acute (4) Dyslipidemia: Status: Acute Reason for Visit Reason for Visit: CP Hospital Course Hospital Course Jenn Diego is a 76 year old female with past medical history of hypothyroidism, dyslipidemia, smoking abuse, hypertension was admitted to [facility] through the emergency room where she presented with complaints of blunt episode of chest pain. This patient has been having episodes of chest pain for the last month or so.? Yesterday the pain started around 6:00 in the evening.? The pain was in the upper substernal region, radiated to the neck and also the left arm.? The intensity of the pain was 9/10.? She did not have any associated nausea or vomiting.? Might have had some shortness of breath.? No palpitation, dizziness or syncopal episode. ? she was brought to the emergency room by ambulance.? In the ambulance, she was given 2 sublingual nitro.? The pain got better.? Chest pain has been waxing and waning since then.? Even now, she has no complete relief of the pain.? The intensity of the chest pain is currently 10 out of 10.? She has no associated fever, chills or cough.? No palpitation or syncopal episode.? She had a Myocardial perfusion imaging on 09/09/2021 which showed reversibility suggesting myocardial scarring with some small area of janice- infarct ischemia in apical inferior and LV apex. Patient admitted to the hospital further evaluation and management. Cardiology was consulted. She underwent cardiac angiogram on 09/20 which showed nonobstructive CAD. Echocardiogram was done which showed normal EF with grade 1 diastolic dysfunction without regional wall motion abnormality and moderate pulmonary hypertension. During hospitalization she was found to have elevated blood pressures for which her antihypertensives were adjusted. She is been discharged hemodynamically stable condition on adjusted antihyperte nsives. She is advised to check her blood pressure daily and maintain a blood pressure diary and follow-up with her primary care provider within next 1 week for further adjustment of antihypertensives. Physical Exam Narrative: GENERAL: The patient is alert and oriented times three. Not in any acute distress. Morbidly obese HEENT: No significant pallor, icterus or lymphadenopathy.Oral cavity: There are no mucous membrane lesions. NECK: Trachea appears to be central. No masses noted. No JVD or thyromegaly appreciated. RESPIRATORY: Chest is symmetrical. No intercostals muscle retraction or any accessory muscle activation. There is no chest wall tenderness. Breath sounds are heard bilaterally. No rales or rhonchi heard. No evidence of any consolidation. BREASTS: Deferred. HEART: The heart sounds are normal. No S3 or S4. No significant murmurs. No pericardial rub ABDOMEN: No vessel pulsations or distention. No tenderness. No organomegaly appreciated. Bowel sounds are normally heard. : Deferred. RECTAL: Deferred. LYMPHATIC: No lymphadenopathy noted in the neck. EXTREMITIES: No edema or cyanosis. No clubbing. MUSCULOSKELETAL: No acute joint deformities or swelling SKIN: There are no significant rashes or ecchymosis NEUROPSYCHIATRIC: The patient is alert and oriented x3. Appears to be in a good mood. No tremors or rigidity noted. Discharge Data Studies Completed and Pending Completed Studies During Hospitalization Category Date Time Status XR chest 1V portable [id number] Stat Exams 09/18/21 20:48 Completed CV. echo complete* [id number] Routine Ultrasound 09/19/21 11:07 Completed Pending at discharge Category Date Time Status AGILE JAVA DEVELOPER request for service Routine Exams 09/20/21 08:20 Ordered Radiology Impressions Chest X-Ray 09/18/21 20:48 IMPRESSION: No acute findings. Echocardiogram CONCLUSIONS ?Normal left ventricular size and systolic function, EF 65% .? No?gross wall motion abnormalities.mild left ventricular?hypertrophy. Grade I/IV diastolic dysfunction (abnormal?relaxation filling pattern), normal to mildly elevated filling?pressures. ?Thickened mitral valve. ?Thickened aortic valve. ?Trace tricuspid valve regurgitation. ?Estimated pulmonary artery peak systolic pressure 48 mm Hg-?moderate pulmonary hypertension ?The mean PA pressure was 36 mmHg. ?There is no pericardial effusion. ?There are no intracardiac masses. ?No similar previous studies are available for comparison ?Dr Philip Dotson MD [facility] ?(Electronically Signed) ?Final Date:? ? ? 19 September 2021 ? 17:46 Laboratory Results WBC 8.1 10^3/uL (4.0-10.0) 09/19/21 05:30 RBC 4.69 10^6/uL (4.1-5.3) 09/19/21 05:30 Hgb 14.6 g/dL (11.5-15.3) 09/19/21 05:30 Hct 43.9 % (37.0-47.0) 09/19/21 05:30 MCV 93.6 fl (81-99) 09/19/21 05:30 MCH 31.1 pg (28.0-34.0) 09/19/21 05:30 MCHC 33.3 g/dL (30.0-36.0) 09/19/21 05:30 RDW 12.5 % (12.1-15.1) 09/19/21 05:30 Plt Count 235 10^3/cmm (130-400) 09/19/21 05:30 MPV 10.5 fL (7.4-10.4) H 09/19/21 05:30 Neut % (Auto) 42.6 % 09/19/21 05:30 Lymph % (Auto) 43.9 % 09/19/21 05:30 [place] % (Auto) 8.3 % 09/19/21 05:30 Eos % (Auto) 4.5 % 09/19/21 05:30 Baso % (Auto) 0.6 % 09/19/21 05:30 Neut # (Auto) 3.44 10^3/uL (1.8-7.7) 09/19/21 05:30 Lymph # (Auto) 3.5 10^3/uL (0.8-4.8) 09/19/21 05:30 [place] # (Auto) 0.7 10^3/uL (0.2-0.9) 09/19/21 05:30 Eos # (Auto) 0.4 10^3/uL (0.0-0.8) 09/19/21 05:30 Baso # (Auto) 0.1 10^3/uL (0.0-0.1) 09/19/21 05:30 Nucleated RBC % (auto) 0 % 09/19/21 05:30 Nucleated RBCs # 0.0 /100WBC 09/19/21 05:30 Sodium 142 mmol/L (136-145) 09/19/21 05:30 Potassium 3.6 mmol/L (3.5-5.1) 09/19/21 05:30 Chloride 105 mmol/L (98-107) 09/19/21 05:30 Carbon Dioxide 26 mmol/L (22-29) 09/19/21 05:30 Anion Gap 14.6 (5-19) 09/19/21 05:30 BUN 19 mg/dL (8-23) 09/19/21 05:30 Creatinine 0.6 mg/dL (0.5-0.9) 09/19/21 05:30 GFR Calculation Not Reportable 09/19/21 05:30 Glucose 84 mg/dL (65-115) 09/19/21 05:30 Estimat Average Glucose 97 09/18/21 21:04 Hemoglobin A1c 5.0 % (4.0-6.0) 09/18/21 21:04 Calculated Osmolality 295 mOsm/kg (285-295) 09/19/21 05:30 Calcium 8.7 mg/dL (8.5-10.5) 09/19/21 05:30 Magnesium 1.8 mg/dL (1.7-2.3) 09/19/21 05:30 Iron 129 ug/dL (37-145) 09/19/21 12:00 TIBC 213 mcg/dl 09/19/21 12:00 % Saturation 60.5 % (20-50) H 09/19/21 12:00 Unsat Iron Binding 84 ug/dL (112-347) L 09/19/21 12:00 Total Bilirubin 0.5 mg/dL (0.15-1.2) 09/19/21 05:30 AST 19 U/L (0-32) 09/19/21 05:30 ALT 20 U/L (0-33) 09/19/21 05:30 Alkaline Phosphatase 55 IU/L (35-105) 09/19/21 05:30 Troponin T Baseline 8 ng/L (0-10) 09/18/21 21:04 Troponin T 120 Minute 10.14 ng/L (0-10) H 09/18/21 22:56 Delta Troponin T 2.14 ABS# (0-10) 09/18/21 22:56 Troponin T Hi Sens 6Hr 9.26 ng/L (0-10) 09/19/21 05:30 Troponin T Hi Sens 6Hr Delta 1.26 ng/L (0-12) 09/19/21 05:30 NT-Pro-B Natriuret Pep 275 pg/mL (0-450) 09/18/21 21:04 NT-Pro-B Natriuret Pep Cancelled 09/18/21 21:04 Total Protein 6.0 g/dL (6.6-8.7) L 09/19/21 05:30 Albumin 3.7 g/dL (3.5-5.2) 09/19/21 05:30 Globulin 2.3 g/dL (1.3-4.6) 09/19/21 05:30 Triglycerides 149 mg/dL (0-150) 09/18/21 21:04 Cholesterol 252 mg/dL (0-200) H 09/18/21 21:04 LDL Cholesterol, Calc 166 mg/dL (50-129) H 09/18/21 21:04 HDL Cholesterol 56 mg/dL (60-100) L 09/18/21 21:04 LDL/HDL Ratio 2.96 RATIO (0.00-3.22) 09/18/21 21:04 Cholesterol/HDL Ratio 4.50 mg/dL (0.0-4.40) H 09/18/21 21:04 TSH 0.73 uIU/mL (0.27-4.20) 09/18/21 21:04 Vitals Last Vital Signs Temp 98.2 F 09/20/21 08:00 Pulse 67 09/20/21 08:00 Resp 16 09/20/21 08:00 BP 160/76 09/20/21 08:00 Pulse Ox 95 09/20/21 08:00 O2 Del Method 09/20/21 08:00 Discharge Plan Discharge Patient Disposition: Home Condition: Stable Prescriptions: New atorvastatin 40 mg Tablet 80 mg PO DAILY 30 Days Qty: 60 0RF aspirin 81 mg Tablet,Delayed Release (Dr/Ec) 81 mg PO DAILY 30 Days Qty: 30 0RF lisinopril 20 mg tablet 20 mg PO DAILY Qty: 30 0RF furosemide [Lasix] 20 mg tablet 20 mg PO DAILY Qty: 30 0RF Continued omega-3 fatty acids 500 mg capsule 500 mg PO BEDTIME (DME) back brace Misc See Rx Instructions .ROUTE .MEDSUPPLY Qty: 1 0RF Rx Instructions: As directed multivitamin Tablet 1 tab PO DAILY@12 tizanidine 2 mg tablet 4 mg PO BEDTIME hydrocodone-acetaminophen 5-325 mg tablet 1 tab PO Q4H PRN (Reason: Pain) potassium chloride 10 mEq tablet extended release 10 meq PO QAM triamcinolone acetonide 0.1 % cream 1 applic TOPICAL TID PRN (Reason: Rash) pantoprazole 40 mg tablet,delayed release (DR/EC) 40 mg PO BID levothyroxine 112 mcg tablet 112 mcg PO QAM Ultra CoQ10 75 mg Capsule 75 mg PO BEDTIME Vitamin D3 50 mcg (2,000 unit) Capsule 50 mcg PO BEDTIME Changed metoprolol succinate 50 mg tablet extended release 24 hr 25 mg PO BEDTIME Qty: 30 0RF Discontinued furosemide 20 mg tablet 20 mg PO QAM Discharge Orders: Discharge Order (Routine); Ordered 09/20/21 Ordered By: Artem Shields Referrals: Nafisa Porter MD [Primary Care Provider] - 7-10 days Discharge Diet: Cardiac Discharge Activity: Resume usual activity and Increase activity as tolerated Patient Instructions: Opioid Safety Activity Restrictions/Additional Instructions: She is advised to check her blood pressure daily and maintain a blood pressure diary and follow-up with her primary care provider within next 1 week for furthe r adjustment of antihypertensives. Discharge Attestations Time Spent in Discharge Care*: greater than 30 min Specific Discharge Activities: educating patient, educating and/or supporting family/caregiver, discussing with pcp/other providers, discussing with human services case manager/social workers/dc planners, documenting/other paperwork and evaluating patient/reviewing data Status at Discharge: Cognitive status at discharge: cognitively intact , Behavioral status at discharge: cooperative , Functional status at discharge: independent ambulation , Overall status at discharge: patient is back to baseline Quality Metrics Clinical Quality Measures [ No reported AMI, CVA or VTE this stay] Coding Level of Care Code Acute Chg FW DC note History Comprehensive Exam Comprehensive Medical Decision Making High Complexity Diagnoses Chest pain R07.9 Cervical disc disorder with radiculopathy M50.10 Morbid obesity E66.01 Dyslipidemia E78.5
--- NOTE | 2021-09-20 14:21 | PC.NURSE ---
tr band slowly deflated and eventually removed at 1400.right hand remains warm to touch and with brisk capillary refill.palpable pulse noted.no hematoma formation noted.site dressed with 2x2 gauze and secured with biocclusive drsg.pt instructed in activity restrictions s/p tr band removal...and instructed to notify staff for any bleeding,pain,sob,numbness...or for any concerns at all.pt verb understanding of instructions.
--- NOTE | 2021-09-20 14:55 | PC.NURSE ---
discharge instructions given and explained.pt verb understanding of instructions.discharged via w/c to exit at this time.daughter to drive pt home.
== END 2021-09-20 14:57 | disposition home or self-care (01) | DRG 287 ==
LOC: ER 22:39 → ICU 09-19 02:26 → MEDSURG 09-19 19:10 → CSU 09-20 10:27
PROVIDERS: Internal Medicine; Admitting Provider Internal Medicine; Emergency Provider Emergency Medicine; PCP Family Medicine; Visit Provider Student in an Organized Health Care Education/Training Program
PROC: B2111ZZ Fluoroscopy of Multiple Coronary Arteries using Low Osmolar Contrast (ICD-10-PCS; principal; 2021-09-20 10:00)
DX: I25.118 Atherosclerotic heart disease of native coronary artery with other forms of angina pectoris (principal); Z68.42 Body mass index [BMI] 45.0-49.9, adult; I27.20 Pulmonary hypertension, unspecified; I51.89 Other ill-defined heart diseases; I10 Essential (primary) hypertension; R94.39 Abnormal result of other cardiovascular function study; E66.01 Morbid (severe) obesity due to excess calories; E78.5 Hyperlipidemia, unspecified; M31.6 Other giant cell arteritis; G89.29 Other chronic pain; M50.10 Cervical disc disorder with radiculopathy, unspecified cervical region; E03.9 Hypothyroidism, unspecified; Z87.891 Personal history of nicotine dependence; Z79.891 Long term (current) use of opiate analgesic; Z82.49 Family history of ischemic heart disease and other diseases of the circulatory system
CPT/HCPCS: 36415; 71045; 80053; 80061; 83036; 83540; 83550; 83735; 83880; 84443; 84484; 85025; 93005; 93306; 93452; 93458; 96360; 96372; 99152; 99285; C1769; C1887; C1894; J1200; J1644; J1650; J2250; J2930; J3010; J3490; J7030; Q9967

== ENCOUNTER → 2021-10-06 14:08 | Outpatient (BNVA) | payer MEDICARE, MEDICAID, SELFPAY | PROVIDERS: PCP Family Medicine; Visit Provider Nurse Practitioner Family | DX: I25.10 Atherosclerotic heart disease of native coronary artery without angina pectoris (principal); Z87.891 Personal history of nicotine dependence | CPT/HCPCS: 80048; 99214 ==

== ENCOUNTER → 2021-10-27 12:46 | Outpatient (BNVA) | payer MEDICARE, MEDICAID, SELFPAY | PROVIDERS: PCP Family Medicine; Visit Provider Internal Medicine Cardiovascular Disease | DX: I10 Essential (primary) hypertension (principal); E78.5 Hyperlipidemia, unspecified; Z87.891 Personal history of nicotine dependence | CPT/HCPCS: 99213 ==

== ENCOUNTER 2022-07-05 10:07 | Outpatient (CLI) | payer MEDICARE, MEDICAID, SELFPAY ==
--- NOTE | 2022-07-05 10:18 | MM_ITS ---
WS: [id number] BILATERAL SCREENING DIGITAL TOMOSYNTHESIS MAMMOGRAM WITH CAD HISTORY: SCREENING COMPARISON: 10/10/2016 and 09/28/2014 Bilateral CC and MLO views with tomosynthesis and synthetic mammography submitted. Computer aided det ection analyzed. Limited RIGHT pectoralis muscle included. Breast composition: There are scattered areas of fibroglandular density. No suspicious masses, microc alcifications or architectural distortion. MM/[place] [id number] IMPRESSION: BI-RADS: 1-Negative FOLLOW UP: 1 Year Follow-up
== END 2022-07-05 10:08 | disposition home or self-care (01) ==
LOC: RAD 10:13
PROVIDERS: PCP Family Medicine; Visit Provider Family Medicine
DX: Z12.31 Encounter for screening mammogram for malignant neoplasm of breast (principal)
CPT/HCPCS: 77063; 77067

== ENCOUNTER 2022-08-16 09:19 | Outpatient (CLI) | payer MEDICARE, MEDICAID, SELFPAY ==
--- NOTE | 2022-08-16 09:31 | MR_ITS ---
WS: [id number] MRI LUMBAR SPINE NONCONTRAST HISTORY: DORSALGIA, UNSPECIFIED COMPARISON: 12/01/2019 TECHNIQUE: Sagittal and axial multisequence imaging is submitted. Mild increase in thoracic kyphosis. Degenerative disc space narrowing. Mild increase in the normal lumbar lordosis. L1 retrolisthesis by 3.9 mm. Less than 2 mm anterolisthe sis of L3 and L4. Not significantly changed. Disc spaces are narrowed and desiccated. No fractures or acute marrow edema. Mild curvature lumbar spine. Conus terminates normally at L1. T12-L1: Mild annular disc bulging. No significant stenosis. L1-L2: Encroachment upon the ventral thecal sac. Encroachment and central stenosis exacerbated by ret rolisthesis of L1. There is disc contacting and effacing the ventral thecal sac. Disc extends into th e subarticular recesses. Moderate central and subarticular recess stenosis has progressed since the p rior exam. There is encroachment upon the traversing L2 nerve roots. Moderate bilateral foraminal antony nosis with mild progression since the prior study. Bilateral facet arthritis. L2-L3: Mild annular disc bulge with ligamentum flavum and facet arthritis. Mild progression of centra l stenosis. Mild central, bilateral subarticular recess and foraminal stenosis. Greater encroachment upon the traversing L3 nerve roots. L3-L4: Diffuse annular disc bulge with mild ligamentum flavum and facet arthritis. Mild central, suba rticular recess and bilateral foraminal stenosis. L4-L5: Diffuse annular disc bulging with marked ligamentum flavum and facet arthritis. Fluid in the f acet joints bilaterally. Mild central and bilateral subarticular recess and foraminal encroachment. F acet arthropathy is progressed. L5-S1: Mild disc bulging. No stenosis. There is very mild disc contact upon the traversing RIGHT S1 n erve root. Asymmetric disc osteophyte extension into the far lateral RIGHT foramen also contacting th e exiting RIGHT L5 nerve root with stenosis. This has progressed since the prior study. Paravertebral soft tissues are negative. Noncystic mass measuring 1.5 cm just anterior to the LEFT kidney and inseparable from the kidney and the pancreatic tail. MR/MR lumbar spine wo con* [id number] IMPRESSION: 1. Progression of degenerative disc disease and facet arthropathy and stenoses since 12/01/2019. 2. L1 retrolisthesis by 3.9 mm, L2 and L3 anterolisthesis by less than 2 mm. N o change. 3. L1-2: Moderate central, bilateral subarticular recess and foraminal stenos is. Encroachment upon the traversing L2 nerve roots is most significant. 4. L2-3: Mild central, bilateral subarticular recess and foraminal stenosis. G reater encroachment upon the traversing L3 nerve roots. 5. L3-4 and L4-5: Mild central stenosis, bilateral subarticular recess and for aminal stenosis. 6. Asymmetric disc osteophyte into the far lateral RIGHT foramen contacting th e exiting RIGHT L5 nerve root with progression of stenosis. 7. Noncystic mass measuring 1.5 cm anterior to the superior LEFT kidney. This may be arising from the kidney, pancreas or splenule. Recommend follow-up CT ab domen and pelvis with IV contrast. This did not appear to be present on the herman or study.
== END 2022-08-16 09:20 | disposition home or self-care (01) ==
LOC: RAD 09:20
PROVIDERS: PCP Family Medicine; Visit Provider Family Medicine
DX: M51.36 Other intervertebral disc degeneration, lumbar region (principal); M43.16 Spondylolisthesis, lumbar region; M48.061 Spinal stenosis, lumbar region without neurogenic claudication; M25.78 Osteophyte, vertebrae
CPT/HCPCS: 72148

== ENCOUNTER 2022-09-15 08:58 | Outpatient (CLI) | payer MEDICARE, MEDICAID, SELFPAY ==
--- NOTE | 2022-09-15 09:07 | CT_ITS ---
WS: [id number] CT ABDOMEN AND PELVIS WITH CONTRAST HISTORY: ABNORMAL FINDINGS ON IMAGING/?ABDOMINAL MASS TECHNIQUE: Imaging performed of the abdomen and pelvis with IV contrast. Single phase imaging of the abdomen. Coronal and sagittal reformats are submitted. All CT scans at [facility] use at [address] one of these dose optimization techniques: automated exposure control; mA and/or kV adjustment per patient size (includes targeted exams where dose is matched to clinical indication); or iterative re construction. IV CONTRAST: Omnipaque 350; 100 mL IV. Oral contrast: Yes. DLP: 812.87 mGy.cm COMPARISON: Prior MRI lumbar spine 08/16/2022 Lower thorax: Lung bases are clear. Mild LEFT heart enlargement. Small hiatal hernia. Liver/biliary system: Normal size liver. There is mild central bile duct dilatation which is contiguo us with the mildly dilated common bile duct. No filling defects or mass identified. Common bile duct tapers towards the pancreatic head. This is probably physiologic dilatation related to prior cholecys tectomy. Gallbladder: Status post cholecystectomy. Pancreas: Normal size pancreas and pancreatic duct. No adjacent inflammation. Spleen: Normal size spleen. No mass or infarct. There is a well-circumscribed mass measuring 1.5 cm with similar enhancement characteristics as the adjacent spleen. This corresponds to the abnormality seen on the recent MRI and is a benign splenule. Adrenal glands: Normal. Right kidney: Normal size kidney. There are very small cortical low-attenuation nodules which are pro bably cysts but too small to characterize. No renal obstruction. Left kidney: Normal size kidney with cortical hypodensities which are too small to characterize. No o bstruction. Aorta: Mild atherosclerosis with no aneurysm. Lymphadenopathy: None. Free fluid: None. GI tract: Prior changes of gastric bypass. No small bowel obstruction. The appendix is not identified . There some very minimal cecal wall thickening. May be due to underdistention of contrast. No defini te mass. Minimal diverticular disease in the sigmoid. Abdominal wall: Unremarkable abdominal wall. No hernia. Pelvis: No free fluid or adenopathy within the pelvis. Minimally distended urinary bladder. Bones: Mild increase in the lumbar lordosis. L1 retrolisthesis by [address]/CT abdomen pelvis w con* [id number] IMPRESSION: 1. Mass seen on the recent MRI sclerosis associated with the superior pole LEF T kidney is a benign splenule. 2. Prior cholecystectomy. 3. Mild central bile duct dilatation is probably on the basis of cholecystecto my. 4. Mild LEFT heart enlargement. 5. No GI tract obstruction.
[2022-09-15] MEDS: barium sulfate 450 mL Oral Susp PO (10:45)
[2022-09-15] MEDS: iohexol 350 mg/mL 500 mL Btl (per mL) IV (11:07)
[2022-09-15 11:08] LABS: Blood Urea Nitrogen 20 mg/dL (8-23)
== END 2022-09-15 08:59 | disposition home or self-care (01) ==
LOC: RAD 09:02
PROVIDERS: PCP Family Medicine; Visit Provider Family Medicine
DX: R19.00 Intra-abdominal and pelvic swelling, mass and lump, unspecified site (principal); N26.9 Renal sclerosis, unspecified; Q89.09 Congenital malformations of spleen; Z90.49 Acquired absence of other specified parts of digestive tract; I51.7 Cardiomegaly
CPT/HCPCS: 74177; 82565; 84520; Q9967

== ENCOUNTER 2023-04-17 09:33 | Outpatient (CLI) | payer MEDICARE, MEDICAID, SELFPAY ==
--- NOTE | 2023-04-17 | ECG_ITS ---
[facility] Test Date: 2023-04-17 Pat Name: Jenn Diego Department: Room: Gender: Female Medical Information Specialist: : 1945 Requested By: Nafisa Foster Order Number: [id number] Davidson MD: Philip Dotson M.D. Interpretive Statements NAME OF STUDY: LEXISCAN SESTAMIBI STRESS TEST INDICATION: CAD PROCEDURE: At the baseline, the EKG revealed normal sinus rhythm with a normal ST Ts. Poor R wave progression. The baseline heart rate was 60 bpm with a blood pressue of 153/82 mm of Hg Lexiscan was infused over a period of 20 seconds. A total of 0.4 milligrams of Lexiscan was infused. The stress phase was continued for a total of 5 minutes. Heart rate at the end of the stress phase was 80 bpm with a blood pressure 151/68 mm of Hg. The EKG at the peak infusion revealed no significant changes. Sestamibi was injected 20 seconds after the Lexiscan infusion. Heart rate at the end of the recovery phase was 75 bpm with a blood pressure of 144/57 mm of Hg. CONCLUSION: 1. No significant EKG changes with the LexiScan infusion 2. No LexiScan induced chest pain or cardiac arrhythmia 3. Normal blood pressure and heart rate response 4. Sestamibi/sestamibi perfusion scan pending; see separate report. Electronically Signed On 04-21-2023 20:37:37 HEAD PIECE ASSEMBLER by Philip Dotson M.D. [id number]
[2023-04-17 10:07] VITALS: BMI 41.9
--- NOTE | 2023-04-17 10:15 | NMCV_ITS ---
NM reji perf SPECT r/s* [id number] Jenn Diego Age: 77 Gender: F : 1945 Exam Date: 04/17/2023 10:25 Ordering Phys: Nafisa Porter MD Technologist: ZOHRA Daniels Exam Location: [facility] Indications: CHEST PAIN, ATHEROSCLEROTIC HEART DISEASE STRESS TEST Please see separate stress test report in [facility] for full findings IMAGE PROTOCOL Rest/Stress 1 Lexiscan Day Radiopharmaceutical Dose (mCi) Administration Site Administered by Rest: Tc-99m 10.5 IV ZOHRA Brar Sestamibi Stress:Tc-99m 32.3 IV ZOHAR Brar Sestamibi Rest: 17-Apr-2023 60 Discovery 630 Stress: 17-Apr-2023 30 Discovery 630 0.4mg Lexiscan. Images obtained in supine and prone position. SPECT RESULTS Technical Quality: Excellent Raw Data Analysis: Normal Image Corrections: No attenuation or motion correction applied Summed Stress Score: 1 Summed Rest Score: 3 Summed Difference Score: 0 PERFUSION FINDINGS Small area of slightly decreased tracer uptake in the basal inferior region with no significant reversibility FUNCTIONAL RESULTS (calculated via Gated SPECT) Stress Image LV EF (%): 86 Stress EDV (mL):71 TID: 0.87 Stress ESV (mL):10 FUNCTIONAL FINDINGS: Segmental wall motion analysis revealing no gross wall motion abnormalities IMPRESSIONS 1. Myocardial perfusion imaging revealing small area of slightly decreased persistent tracer uptake involving the basal inferior wall region, most likely represent attrition artifact. 2. Normal LV ejection fraction of 86% 3. LV wall motion analysis revealing no gross wall motion abnormalities. 4. Normal LV volume No similar previous studies are available for comparison Dr Philip Dotson MD FAC (Electronically Signed) Final Date: 17 April 2023 13:50 S
[2023-04-17] MEDS: regadenoson 0.4 Mg/5 ml Syringe 0.400000000000000022 MG IVP (11:02)
[2023-04-17 11:15] VITALS: BP 142/78; PULSE 74
--- NOTE | 2023-04-17 12:06 | USCV_ITS ---
Jenn Diego Age: 77 Gender: F : 1945 Exam Date: 04/17/2023 12:35 Ordering Phys: Nafisa Porter MD Technologist: OLU Exam Location: [facility] Indication: This is paired with a nuc med scan. Heart Failure BP: / HR: 0 Rhythm: Sinus Technical Quality: Adequate MEASUREMENTS (Male / Female) Normal Values 2D ECHO LV Diastolic Diameter PLAX 4.0 cm 4.2 - 5.9 / 3.9 - 5.3 cm LV Systolic Diameter PLAX 3.5 cm IVS Diastolic Thickness 1.1 cm 0.6 - 1.0 / 0.6 - 0.9 cm IVS Systolic Thickness 1.4 cm LVPW Diastolic Thickness 1.2 cm 0.6 - 1.0 / 0.6 - 0.9 cm LVPW Systolic Thickness 1.5 cm LVOT Diameter 2.0 cm LV Ejection Fraction 2D Teich 29.0 % LV Ejection Fraction MOD 2C 65.8 % LA Diameter 3.8 cm Aorta at Sinotubular Diameter 2.9 cm IVC Diameter 1.5 cm M-MODE LA Ao Ratio MM 1.6 AV Cusp Separation MM 1.8 cm DOPPLER AV Peak Velocity 208.0 cm/s LVOT Peak Velocity 134.0 cm/s AV Area Cont Eq vti 2.3 cm squared AV Area Cont Eq pk 2.1 cm squared MV Area PHT 2.6 cm squared Mitral E to A Ratio 0.8 TR Peak Velocity 210.0 cm/s TR Peak Gradient 17.6 mmHg TR Mean Velocity 137.0 cm/s TR Mean Gradient 9.2 mmHg TR Velocity Time Integral 43.8 cm TV Peak E Velocity 55.0 cm/s Right Atrial Pressure 3.0 mmHg Pulmonary Artery Systolic Pressu 20.6 mmHg RV Ejection Time 0.4 s FINDINGS Left Ventricle Normal left ventricular size, systolic function and wall thickness, with no regional wall motion abnormalities. Grade I/IV diastolic dysfunction (abnormal relaxation filling pattern), normal to mildly elevated filling pressures. Left ventricular ejection fraction is estimated at 60 %. Right Ventricle Normal right ventricular size and systolic function. Normal right ventricular systolic pressure. Right Atrium The right atrium is normal in size. Left Atrium The left atrium is normal in size. Mitral Valve Structurally normal mitral valve without significant stenosis or prolapse. There is no mitral regurgitation. Aortic Valve Structurally normal trileaflet aortic valve. No aortic valve stenosis. Trace aortic valve regurgitation. Tricuspid Valve Structurally normal tricuspid valve. Trace tricuspid valve regurgitation. Pulmonic Valve Pulmonic valve not well visualized. Pericardium Normal pericardium without effusion. Aorta Normal ascending aorta dimension. IVC The inferior vena cava appears normal. CONCLUSIONS Normal left ventricular size, systolic function and wall thickness, with no regional wall motion abnormalities. Grade I/IV diastolic dysfunction (abnormal relaxation filling pattern), normal to mildly elevated filling pressures. Left ventricular ejection fraction is estimated at 60 %. Structurally normal trileaflet aortic valve. No aortic valve stenosis. Trace aortic valve regurgitation. No change from the previous study dated 09/19/2021 Dr. Marlon Gómez MD (Electronically Signed) Final Date: 17 April 2023 16:30 S
== END 2023-04-17 09:34 | disposition home or self-care (01) ==
LOC: CDL 09:34
PROVIDERS: PCP Family Medicine; Visit Provider Family Medicine
DX: R07.9 Chest pain, unspecified (principal); I25.10 Atherosclerotic heart disease of native coronary artery without angina pectoris; I35.1 Nonrheumatic aortic (valve) insufficiency
CPT/HCPCS: 36415; 78452; 93017; 93306; 96374; A9500; J2785

== ENCOUNTER 2023-07-05 12:37 | Outpatient (RCR) | payer MEDICARE, MEDICAID, SELFPAY | END 2023-07-13 23:59 | disposition home or self-care (01) | LOC: SPT 12:37 | PROVIDERS: PCP Family Medicine; Visit Provider Family Medicine | DX: M54.9 Dorsalgia, unspecified (principal); M54.16 Radiculopathy, lumbar region | CPT/HCPCS: 97110; 97161; 99204 ==

== ENCOUNTER 2023-07-14 06:00 | Outpatient (RCR) | payer MEDICARE, MEDICAID, SELFPAY | END 2023-08-12 23:59 | disposition home or self-care (01) | LOC: SPT 06:00 | PROVIDERS: PCP Family Medicine; Visit Provider Family Medicine | DX: M54.9 Dorsalgia, unspecified (principal) | CPT/HCPCS: 97110; G0283 ==

== ENCOUNTER → 2023-07-17 15:00 | Outpatient (BNVA) | payer MEDICARE, MEDICAID, SELFPAY | PROVIDERS: PCP Family Medicine; Visit Provider Anesthesiology Pain Medicine | DX: M54.16 Radiculopathy, lumbar region (principal) | CPT/HCPCS: 64483; 64484; J1100; J3490 ==

== ENCOUNTER → 2023-07-31 09:15 | Outpatient (BNVA) | payer MEDICARE, MEDICAID, SELFPAY | PROVIDERS: PCP Family Medicine; Visit Provider Anesthesiology Pain Medicine | DX: M54.50 Low back pain, unspecified (principal); M54.2 Cervicalgia | CPT/HCPCS: 99214 ==

== ENCOUNTER → 2023-08-09 13:19 | Outpatient (BNVA) | payer MEDICARE, MEDICAID, SELFPAY | PROVIDERS: PCP Family Medicine; Visit Provider Orthopaedic Surgery | DX: M54.9 Dorsalgia, unspecified (principal); M48.062 Spinal stenosis, lumbar region with neurogenic claudication | CPT/HCPCS: 36415; 72110; 80053; 81001; 85025; 99204 ==

== ENCOUNTER 2023-09-07 08:23 | Day surgery (SDC) | payer MEDICARE, MEDICAID, SELFPAY ==
[2023-09-07] VITALS (10 sets, daily range): BP systolic 109–150; BP diastolic 44–77; PULSE 58–80; RESP 16–20; TEMP 36.1–36.4; O2SAT 93–97; BMI 40.2
--- NOTE | 2023-09-07 | XR_ITS ---
WS: [id number] C-ARM RADIOGRAPHS LUMBAR SPINE; 2 IMAGES HISTORY: BERTHA SALVADOR COMPARISON: 08/09/2023 Intraoperative imaging during spinal decompression. There is a marker placed over the RIGHT L4-5 disc level. XR/XR lumbar spine 2-3V* [id number] IMPRESSION: Intraoperative imaging during spinal decompression at L4-5.
--- NOTE | 2023-09-07 09:04 | P.ANESASSM_ITS ---
Pre-Anesthetic Assessment Height/Weight: Height 1.57 m Weight 99.79 kg Temp Pulse Resp BP Pulse Ox O2 Del Method 97.3 F L 58 L 202 H 119/62 95 Room Air 09/07/23 08:35 09/07/23 08:35 09/07/23 08:35 09/07/23 08:35 09/07/23 08:35 09/07/23 08:37 Preop Diagnosis: Lumbar stenosis with neurogenic claudication Operation Date: 09/07/23 09:50 Proposed Procedures p Lumbar Spine Decompression Lumbar Decompression(Not Applicable) - Agapito Espinal, DO Familial anesthetic complications: None Was Beta Osmin taken within 24 hours: N/A Was Clonidine taken within 24 hours: N/A Last intake: Intake Last Liquid Date 09/06/23 Last Liquid Time 20:00 Last Solid Date 09/06/23 Last Solid Time 20:00 Social No alcohol and No tobacco Exam alert, oriented x 3, clear to auscultation bilaterally and regular rate & rhythm Airway Mallampati: Class II Dentition: false CV/HEM Coronary Artery Disease (mild) and Hypertension Metabolic Hyperlipidemia and Thyroid Disease Anesthetic Plan ASA status: 2 Anesthesia: General Risk of > 500 ml blood loss (7ml/kg in children): No Medications/Allergies Home Medications Medication Instructions Recorded Confirmed Last Taken Type back brace #1 ea 12/08/20 09/07/23 Unknown Rx cholecalciferol (vitamin D3) 50 50 mcg PO BEDTIME 09/19/21 09/07/23 09/06/23 History mcg (2,000 unit) capsule (Vitamin D3) hydrocodone 5 mg-acetaminophen 325 1 tab PO Q4H PRN Pain 09/19/21 09/07/23 09/06/23 History mg tablet levothyroxine 112 mcg tablet 112 mcg PO QAM 09/19/21 09/07/23 09/07/23 History multivitamin 1 tab PO DAILY@12 09/19/21 09/07/23 09/06/23 History pantoprazole 40 mg tablet,delayed 40 mg PO BID 09/19/21 09/07/23 09/07/23 History release potassium chloride 10 mEq 10 meq PO QAM 09/19/21 09/07/23 09/06/23 History tablet,extended release tizanidine 2 mg tablet 4 mg PO BEDTIME 09/19/21 09/07/2324 History triamcinolone acetonide 0.1 % 1 applic topical TID PRN Rash 09/19/21 09/07/23 08/16/23 History topical cream furosemide 20 mg tablet (Lasix) 20 mg PO DAILY #30 tabs 09/20/21 09/07/23 09/06/23 Rx lisinopril 20 mg tablet 20 mg PO DAILY #30 tabs 09/20/21 09/07/23 09/07/23 Rx metoprolol succinate 50 mg 25 mg (1/2 x 50 mg) PO BEDTIME #30 09/20/21 09/07/23 09/06/23 Rx tablet,extended release 24 hr tabs Allergies Allergy/AdvReac Type Severity Reaction Status Date / Time Iodinated Contrast Media Allergy Unknown anaphylaxis Verified 09/07/23 08:36 adhesive Allergy red skin Verified 09/07/23 08:36 oxaprozin [From Daypro] Allergy itching, Verified 09/07/23 08:36 rash shellfish derived Allergy swelling Verified 09/07/23 08:36 of throat and face [facility] Anesthesia Medical History Essential hypertension Atherosclerosis of coronary artery Morbid obesity Right temporal headache Cervical disc disorder with radiculopathy Stenosis of cervical spine with myelopathy Cervical disc disorder with myelopathy of mid-cervical region Surgical History History of temporal artery biopsy (05/19/21) Hx of cataract surgery History of colonoscopy History of hysterectomy History of laparoscopic cholecystectomy History of appendectomy History of carpal tunnel release History of removal of laparoscopic gastric banding device Hx of laparoscopic adjustable gastric banding History of shoulder surgery Family History Mother CAD (coronary artery disease) Social History Smoking and tobacco/nicotine status: unknown if used tobacco/nicotine Second hand smoke exposure: No Alcohol intake: never Substance/Drug Use: never Household members: none Marital status: / Current occupational status: retired and disabled Data Anesthesia Cardiac Studies: Echocardiogram 04/17/23 Sestamibi Stress Test (Cardiology) 04/16
--- NOTE | 2023-09-07 09:12 | W.PM.OPSUD ---
Surgery/Procedure H&P Update DATE OF PROCEDURE: September 07, 2023 DATE H&P PERFORMED: 08/09/23 H&P UPDATE INFORMATION: I have reviewed H&P completed within last 30 days, I have examined patient prior to procedure and No changes to prior documentation PREOP DIAGNOSIS: Lumbar stenosis with neurogenic claudication PLANNED PROCEDURE: Operation Date: 09/07/23 09:50 Proposed Procedures p Lumbar Spine Decompression Lumbar Decompression(Not Applicable) - Agapito Espinal DO
--- NOTE | 2023-09-07 09:18 | ECG_ITS ---
[facility] Test Date: 2023-09-07 Pat Name: Jenn Diego Department: Room: Gender: Female Cart[employer] Feeder: : 1945 Requested By: Dorothy Middleton Order Number: [id number] Davidson MD: Philip Dotson M.D. Measurements Intervals [place] Rate: 53 P: 15 [place]: 191 QRS: -1 QRSD: 85 T: 18 QT: 418 QTc: 394 Interpretive Statements SINUS BRADYCARDIA Compared to ECG 09/19/2021 07:28:46 Sinus rhythm no longer present T-wave abnormality no longer present Electronically Signed On 09-07-2023 9:24:18 CDT by Philip Dotson M.D. [id number]
[2023-09-07] MEDS: sodium chloride 0.9% 1,000 ML 30 ML IV (09:20)
[2023-09-07] MEDS: ceFAZolin 2,000 MG in sodium chloride 0.9% (plus) 50 ML 100 MG IV (09:37)
[2023-09-07] MEDS: lidocaine-epi 1% 20 mL INJ INJECTION (10:15)
--- NOTE | 2023-09-07 10:49 | P.OP_ITS ---
Operative Report Date of procedure: September 07, 2023 Pre-op diagnosis: Lumbar stenosis with neurogenic claudication Post-op diagnosis: same Procedure done: L4-5 laminectomy with partial facetectomy Surgeon: Agapito Espinal DO Estimated blood loss (mL): 5 Procedure: L4-5 laminectomy with partial facetectomy Patient is brought to the operative suite. After undergoing anesthesia they are placed in the prone position. All areas of impingement are well padded. Patient is then prepped and draped in the normal sterile fashion. A skin incision is made over the L4-5 level. This is confirmed under c-arm guidance. A series of dilators are passed and the tubular retractor is docked on the L4 lamina. A bovie is used to clear the soft tissue off the lamina and the L 4/5 facet joint. A high speed pamela is then used to perform the laminectomy and take down the medial aspect of the L 4/5 facet joint. A kerrison rongeure was then used to take down the remaining lamina and smooth the edge of the laminectomy up to the point where the ligamentum flavum attaches. Attention was then brought to the medial aspect of the facet joint. The remaining medial aspect of the superior and inferior aspect of the facet joint were taken down with the kerrison from the pedicle of L4 to L 5. The facet j oint had significant hypertrophy. Attention was then brought to the Ligamentum Flavum. The ligament was taken down from the lamina of L4 to L5 and out medially to the remaining facet joint. The ligament was thick. The dura was then exposed. The dura was in good repair. The L4 nerve was then traced with a curette out the L4/5 foramen and found to be adequately decompressed. The L5 nerve was traced with a curette around the L5 pedicle. The lateral recess was opened with a kerrison helping to further decompress the L5 nerve. Wound is then irrigated copiously with saline and surgiflo is used to stop any bleeding. The tubular retractor is removed and the wound is closed with vicryl and monocryl suture. Glue is then used to protect the wound. A sterile dressing is then placed. Patient was then placed in the supine position and transferred to the PACU in stable condition.
[2023-09-07] MEDS: ondansetron 2 mg/ML SDV 2 mL 4 MG IVP (11:36)
[2023-09-07] MEDS: HYDROcodone-acetaminophen 5-325 mg Tablet 1 TAB PO (11:37)
--- NOTE | 2023-09-07 12:10 | ANE.PACU2 ---
Inpatient post-anesthesia follow up: Airway intact: Yes Vital signs: Temperature 97.0 F Pulse Rate 61 Respiratory Rate 20 Blood Pressure 128/59 Pulse Oximetry 97 Oxygen Delivery Me thod Room Air Oxygen Flow Rate Fraction of Inspir ed Oxygen Hydration adequate: Yes Nausea and vomiting: No Pain level: 1 Mental status: Baseline
== END 2023-09-07 12:10 | disposition home or self-care (01) ==
PROVIDERS: PCP Family Medicine; Visit Provider Orthopaedic Surgery
PROC: (CPT 63005; principal; 2023-09-07 09:40)
DX: M48.062 Spinal stenosis, lumbar region with neurogenic claudication (principal); I25.10 Atherosclerotic heart disease of native coronary artery without angina pectoris; I10 Essential (primary) hypertension; E78.5 Hyperlipidemia, unspecified; E66.01 Morbid (severe) obesity due to excess calories; Z68.41 Body mass index [BMI] 40.0-44.9, adult; Z82.49 Family history of ischemic heart disease and other diseases of the circulatory system
CPT/HCPCS: 63047; 72100; 76000; 93005; J0690; J1100; J2405; J2704; J3010; J3490; J7030

== ENCOUNTER → 2023-10-04 14:21 | Outpatient (BNVA) | payer MEDICARE, MEDICAID, SELFPAY | PROVIDERS: PCP Family Medicine; Visit Provider Orthopaedic Surgery | DX: M48.062 Spinal stenosis, lumbar region with neurogenic claudication (principal) | CPT/HCPCS: 99024 ==

== ENCOUNTER → 2023-10-18 09:54 | Outpatient (BNVA) | payer MEDICARE, MEDICAID, SELFPAY | PROVIDERS: PCP Family Medicine; Visit Provider Orthopaedic Surgery | DX: Z98.890 Other specified postprocedural states (principal); M48.062 Spinal stenosis, lumbar region with neurogenic claudication | CPT/HCPCS: 99024 ==

== ENCOUNTER → 2023-12-18 08:45 | Outpatient (BNVA) | payer MEDICARE, MEDICAID, SELFPAY | PROVIDERS: PCP Family Medicine; Visit Provider Orthopaedic Surgery | DX: Z48.89 Encounter for other specified surgical aftercare (principal) | CPT/HCPCS: 99024 ==